=== PATIENT | male | born 1950 | race Caucasian/White ===

== ENCOUNTER 2017-04-20 12:54 | Inpatient (IN) | payer OTHER, MEDICARE ==
[~2017-04-20] VITALS: Ht 177.8 cm; Wt 115.2 kg
[~2017-04-20 12:54] MED LIST: AMLODIPINE BESYL5 M1 PO; BACITRACIN28.4 GM TOP; CELECOXIB200 M1 PO; CLEOCIN HCL300 M1 PO; FUROSEMIDE20 M1 PO; GABAPENTIN300 M2 PO; JARDIANCE10 M1 PO; KEFLEX500 M1 PO; KEFLEX750 M1 PO; LANTUS SOL100 UNIT/1 SC; LOSARTAN-HCTZ1 EACH PO; METFORMIN HCL1000 M1 PO; PERCOCET 325 MG1 TA2 PO; TRULICITY1.5 MG/0.5 SC
--- NOTE | 2017-04-20 13:28 | ED CARDIAC/CP/PALPITATIONS ---
History of Present Illness General Chief Complaint: Chest Pain Stated Complaint: "I THINK IM HAVING A HEART ATTACK" CP/L ARM PA Source: patient Exam Limitations: no limitations Vital Signs & Intake/Output Vital Signs & Intake/Output Vital Signs Date Time Temp Pulse Resp B/P B/P Pulse O2 O2 Flow FiO2 Mean Ox Delivery Rate 04/20 1836 104 24 140/63 92 Non 100% ReBreather 04/20 1804 92 Non 100% ReBreather 04/20 1747 98 24 123/59 92 Non ReBreather 04/20 1740 92 Non ReBreather 04/20 1520 97.7 96 24 114/55 93 Nasal 3.0L Cannula 04/20 1350 91 Nasal 2.0L Cannula 04/20 1334 91 Nasal 2.0L Cannula 04/20 1311 99.2 99 20 127/67 91 Room Air Allergies Coded Allergies: Penicillins (Severe, HIVES 09/15/16) latex (PEELS SKIN OFF PER PT 04/20/17) Reconcile Medications Amlodipine Besylate 10 MG TABLET 1 TAB PO DAILY BP (Reported) Aspirin (Ecotrin*) 81 MG TABLET.DR 1 TAB PO DAILY HEART/BLOOD (Reported) Celecoxib 200 MG CAPSULE 2 CAP PO QAM PAIN/INFLAMMATION (Reported) Cyanocobalamin (Vitamin B-12) (Vitamin B-12) 500 MCG TABLET 1 TAB PO DAILY SUPPLEMENT (Reported) Dulaglutide (Trulicity) (Unknown Strength) PEN.INJCTR (Unknown Dose) SC QMON DM (Reported) Empagliflozin (Jardiance) 10 MG TABLET 1 TAB PO DAILY DIABETES (Reported) Ezetimibe (Zetia) 10 MG TABLET 1 TAB PO DAILY CHOLESTEROL (Reported) Furosemide 20 MG TABLET 1 TAB PO DAILY WATER RETENTION (Reported) Gabapentin 300 MG CAPSULE 1 CAP PO TID PAIN (Reported) Hydrocortisone 2.5 % CREAM..G. 1 TASHA TOP PRN SKIN - NOSE (Reported) apply to affected area(s) Insulin Glargine,Hum.rec.anlog (Lantus Solostar) 100 UNIT/ML (3 ML) INSULN.PEN 40 UNIT SC QPM DIABETES (Reported) Ketoconazole (Nizoral) 2 % SHAMPOO 1 TASHA TOP ONCE A WEEK SCALP (Reported) Ketoconazole 2 % CREAM..G. 1 TASHA TOP PRN SKIN (Reported) apply to affected area(s) Levofloxacin 750 MG TABLET 1 TAB PO DAILY Pneumonia Losartan/Hydrochlorothiazide (Losartan-Hctz 100-12.5 MG Tab) 100 MG-12.5 MG TABLET 1 TAB PO DAILY HEART (Reported) Metformin HCl 1,000 MG TABLET 1 TAB PO BID DIABETES (Reported) [place]-3S/Dha/Epa/Fish Oil (Fish Oil 1,000 MG Softgel) 300 MG (250 MG-50 MG)-1, 000 MG CAPSULE 1 SGL PO BID SUPPLEMENT (Reported) Pyridoxine HCl (Vitamin B-6) 50 MG TABLET 1 TAB PO DAILY SUPPLEMENT (Reported ) Triage Note: C/O CP SINCE THIS MORNING THAT WENT INTO LEFT ARM. PT STATES LEFT HAND WAS NUMB. PT STATES +SOB. HX OF NEUROPATHY Triage Nurses Notes Reviewed? yes Onset: Gradual Duration: worse persistent since (2 DAYS) Timing: no prior history Quality/Severity: moderate Location: RIGHT SIDED Radiation: no radiation Activities at Onset: none HPI: Patient is a 66-year-old male with history of diabetes, hypertension, remote history of melanoma presenting to the emergency department complaint of congestion over the past one week presenting to the emergency department with chief complaint of right-sided chest pain, shortness of breath gets worse with exertion that started yesterday. denies palpitations. Positive tactile fevers and chills. Has not taken and revealed help with symptoms. Denies any changes in weight. Bleeding and drinking without difficulty. Denies any urinary frequency or urgency or dysuria. Denies hematuria. No abdominal pain. Denies daily drinking. Past History Travel History Traveled to [place] past 21 day No Medical History Any Pertinent Medical History? see below for history Neurological: NONE, peripheral neuropathy EENT: NONE Cardiovascular: hypertension, hyperlipidemia Respiratory: NONE Gastrointestinal: GERD Hepatic: NONE Renal: NONE Musculoskeletal: NONE Psychiatric: NONE Endocrine: diabetes Blood Disorders: NONE Cancer(s): melanoma PHLEBOTOMY SUPPORT TECH/Reproductive: NONE History of MRSA: No History of VRE: No History of CDIFF: No Surgical History Surgical History: MELANOMA REMOVED FROM BACK L HIP REPLACEMENT Psychosocial History Who do you live with Mother Services at Home None What is your primary language Cuban Tobacco Use: Quit >30 days ago ETOH Use: occasional use Illicit Drug Use: denies illicit drug use Family History Hx Contributory? No Review of Systems Review of Systems Constitutional: Reports: see HPI, chills, diaphoresis, fever. Comments Review of systems: See HPI, All other systems negative. Constitutional, no weight loss HEENT: No visual changes no sore throat Cardiovascular: No palpitation , orthopnea or ankle swelling Skin, no jaundice no rashes Respiratory: No hemoptysis GI: No nausea no vomiting : No dysuria No hematuria Muscle skeletal: no back pain, no neck pain, Neurologic: No numbness no confusion NO HEADACHES Psych: No stress anxiety or depression,. Heme/endocrine: No bruising no bleeding no polyuria or polydipsia Immunology: No splenectomy or history of AIDS Physical Exam Physical Exam General Appearance: alert, awake, mild distress, obese Cardiovascular: TACHY Comments: OBSES person in MID DISTRESS, appears mildly diaphoretic HEENT: Pupils equally round and reactive to light and accommodation. Nose is atraumatic. External auditory canal and Tympanic membranes clear. Pharynx normal. No swelling or edema. Slightly dry oral mucosa. Neck: Supple, no lymphadenopathy, normal range of motion without pain or tenderness Back: Nontender, no CVA tenderness. Full range of motion. Old surgical incision noted over the left upper back. No surrounding erythema or edema. Cardiovascular: Tachycardic rate and rhythms no murmurs rubs or gallops Respiratory: Chest nontender. MILD respiratory distress.scattered rhonchi to auscultation on the right upper and lower lobes, left lung is clear to auscultation. Abdomen: Soft, nontender diffusely distended, no appreciable organomegaly. Normal bowel sounds. Extremity: No edema, no calf tenderness to palpation, normal and equal pulses. Neuro: Alert oriented x3 Skin: No appreciable rash on exposed skin, skin is warm and dry. Psych: Mood and affect is normal, memory and judgment is normal. Core Measures ACS in differential dx? Yes CVA/TIA Diagnosis No Sepsis Present: Yes Sepsis Focused Exam Completed? Yes ED Sepsis Exam Date of Focused Sepsis Exam: 04/20/17 Time of Focused Sepsis Exam: 1410 Sepsis Cardiac Exam: Tachycardia Sepsis Resp Exam: Ronchi (RIGHT LOBE) Sepsis Cap Refill Exam: <2 Sec Sepsis Peripheral Pulse Exam: Normal Sepsis Peripheral Pulse Location: Radial Sepsis Skin Color Exam: Normal for Ethnicity Skin Temp/Moisture Exam: Warm/Dry Progress Differential Diagnosis: AMI, aortic dissection, cholecystitis, CHF/pulm edema, pneumonia, pneumothorax, pulmonary embolism, , POSTOBSTRUCTIVE PNEUMONIA, LUNG CA, Plan of Care: Orders Procedure Date/time Status AEROSOL CHG 04/23 UNK Complete OXYGEN 04/23 UNK Complete OXYGEN DAILY CHARGE 04/23 UNK Complete Diagnostic Imaging: Viewed by Me: Radiology Read. Discussed w/RAD: Radiology Read. Radiology Impression: PATIENT: CARLENE BEARD JR PRESENT AGE: 66 PATIENT ACCOUNT NO: [id number] : 50 LOCATION: [facility] ORDERING PHYSICIAN: Ivory VALDEZ SERVICE DATE: 04/20/17 EXAM TYPE: RAD - XRY-PORTABLE CHEST XRAY EXAMINATION: XR PORTABLE CHEST CLINICAL INFORMATION: Shortness of breath and chest pain. Rule out PE. COMPARISON: Chest CT 09/19/2016. TECHNIQUE: Portable frontal view of the chest was obtained. FINDINGS: Approximately 13 x 8 cm lesion is present in the right lateral chest which has the imaging appearance of a pleural based mass such as loculated pleural effusion. This finding will be further assessed on the already ordered chest CTA. The left lung is grossly clear. The cardiomediastinal silhouette appears normal. IMPRESSION: Large right-sided pleural-based mass measuring up to 13 x 8 cm concerning for a loculated pleural effusion. This finding will be more definitively characterized on the already ordered chest CTA. DICTATED BY: Candie Wagner MD DATE/TIME DICTATED:04/20/171419 MECHANICAL DRAWING TEACHER:MARIA ESTHER DATE/TIME TRANSCRIBED:04/20/171419 CONFIDENTIAL, DO NOT COPY WITHOUT APPROPRIATE AUTHORIZATION. <Electronically signed in Other Vendor System> SIGNED BY: Candie Wagner MD 04/20/171428 Initial ED EKG: SINUS TACHY Departure Departure Time of Disposition: 1911 Disposition: STILL A PATIENT Condition: Stable Clinical Impression Primary Impression: Pneumonia Qualifiers: Pneumonia type: due to unspecified organism Laterality: right Lung location: upper lobe of lung Qualified Code: J18.1 - Lobar pneumonia, unspecified organism Secondary Impressions: Hypoxia Referrals: Keya JUSTIN,Naeem Becerra (PCP/Family) Departure Forms: Customer Survey General Discharge Information Prescriptions: Current Visit Scripts Levofloxacin 1 TAB PO DAILY #7 TAB Admission Note Spoke With: Nickie Edwards MD Documentation of Exam: Documentation of any treatments & extenuating circumstances including Concerns Regarding Discharge (functional status, medication knowledge or non-compliance, living conditions, etc.) that warrant an admission rather than observation: Patient requiring IV antibiotics for likely large pneumonia, pulmonology consultation, continued oxygen for hypoxia, continuous pulse ox monitoring, blood cultures to return, discharge at the sense that. Serial ABGs. Critical Care Note Critical Care Note Critical Care Time: 75-104 min 83.7, MCH 28.4, MCHC 34.0, RDW 15.0 H, MPV 9.4, Gran % 93.4 H, Lymphocytes % 2.2 L, Monocytes % 4.4, Eosinophils % 0, Basophils % 0, Absolute Granulocytes 19.6 H, Segmented Neutrophils 70, Band Neutrophils 19 H, Absolute Lymphocytes 0.5 L, Lymphocytes 1 L, Monocytes 10 H, Absolute Monocytes 0.9 H, Absolute Eosinophils 0, Absolute Basophils 0, Polychromasia 1+, Anisocytosis 1+ Microbiology 04/20 1558 BLOOD: Blood Culture - RECD 04/20 1450 BLOOD: Blood Culture - RECD 04/20 1415 NASOPHARYN: Influenza Virus A & B Rapid Smear - COMP Diagnostic Imaging: Viewed by Me: Radiology Read. Discussed w/RAD: Radiology Read. Radiology Impression: PATIENT: CARLENE BEARD JR PRESENT AGE: 66 PATIENT ACCOUNT NO: [id number] : 50 LOCATION: [facility] ORDERING PHYSICIAN: Ivory VALDEZ SERVICE DATE: 04/20/17 EXAM TYPE: RAD - XRY-PORTABLE CHEST XRAY EXAMINATION: XR PORTABLE CHEST CLINICAL INFORMATION: Shortness of breath and chest pain. Rule out PE. COMPARISON: Chest CT 09/19/2016. TECHNIQUE: Portable frontal view of the chest was obtained. FINDINGS: Approximately 13 x 8 cm lesion is present in the right lateral chest which has the imaging appearance of a pleural based mass such as loculated pleural effusion. This finding will be further assessed on the already ordered chest CTA. The left lung is grossly clear. The cardiomediastinal silhouette appears normal. IMPRESSION: Large right-sided pleural-based mass measuring up to 13 x 8 cm concerning for a loculated pleural effusion. This finding will be more definitively characterized on the already ordered chest CTA. DICTATED BY: Candie Wagner MD DATE/TIME DICTATED:04/20/171419 MECHANICAL DRAWING TEACHER:MARIA ESTHER DATE/TIME TRANSCRIBED:04/20/171419 CONFIDENTIAL, DO NOT COPY WITHOUT APPROPRIATE AUTHORIZATION. <Electronically signed in Other Vendor System> SIGNED BY: Candie Wagner MD 04/20/17 1429 Initial ED EKG: SINUS TACHY Departure Departure Time of Disposition: 1911 Disposition: STILL A PATIENT Condition: Stable Clinical Impression Primary Impression: Pneumonia Qualifiers: Pneumonia type: due to unspecified organism Laterality: right Lung location: upper lobe of lung Qualified Code: J18.1 - Lobar pneumonia, unspecified organism Secondary Impressions: Hypoxia Referrals: Naeem Laura MD (PCP/Family) Departure Forms: Customer Survey General Discharge Information Admission Note Spoke With: Nickie Edwards MD Documentation of Exam: Documentation of any treatments & extenuating circumstances including Concerns Regarding Discharge (functional status, medication knowledge or non-compliance, living conditions, etc.) that warrant an admission rather than observation: Patient requiring IV antibiotics for likely large pneumonia, pulmonology consultation, continued oxygen for hypoxia, continuous pulse ox monitoring, blood cultures to return, discharge at the sense that. Serial ABGs. Critical Care Note Critical Care Note Critical Care Time: 75-104 min
[2017-04-20 13:38] LABS: ABSOLUTE BASOPHIL COUNT 0 /CUMM (0.0-0.2); ABSOLUTE EOSINOPHIL COUNT 0 /CUMM (0.0-0.7); ABSOLUTE GRANULOCYTE CT 19.6 /CUMM (1.4-6.5); ABSOLUTE LYMPH COUNT 0.5 /CUMM (1.2-3.4); ABSOLUTE MONOCYTE COUNT 0.9 /CUMM (0.10-0.60); BASOPHIL % 0 % (0.0-2.0); EOSINOPHIL % 0 % (0-5); GRANULOCYTE % 93.4 % (42.2-75.2); HEMATOCRIT 40.9 % (42-52); MEAN CORPUSCULAR HGB 28.4 PG (27.0-31.0); MEAN CORPUSCULAR VOLUME 83.7 FL (80.0-94.0); MEAN PLATELET VOLUME 9.4 FL (7.4-10.4); PLATELET COUNT 209 /CUMM (130-400); RED BLOOD CELL CT 4.88 /CUMM (4.70-6.10)
--- NOTE | 2017-04-20 14:29 | RADIOLOGY REPORT ---
EXAMINATION: XR PORTABLE CHEST CLINICAL INFORMATION: Shortness of breath and chest pain. Rule out PE. COMPARISON: Chest CT 09/19/2016. TECHNIQUE: Portable frontal view of the chest was obtained. FINDINGS: Approximately 13 x 8 cm lesion is present in the right lateral chest which has the imaging appearance of a pleural based mass such as loculated pleural effusion. This finding will be further assessed on the already ordered chest CTA. The left lung is grossly clear. The cardiomediastinal silhouette appears normal. IMPRESSION: Large right-sided pleural-based mass measuring up to 13 x 8 cm concerning for a loculated pleural effusion. This finding will be more definitively characterized on the already ordered chest CTA.
[2017-04-20 16:56] LABS: PT 15.6 SEC (9.4-12.5); PTT 33 SEC (25-37)
--- NOTE | 2017-04-20 19:07 | CT SCAN REPORT ---
EXAMINATION: CT ANGIOGRAM OF THE CHEST WITH AND WITHOUT CONTRAST (CT PULMONARY ANGIOGRAM FOR PE) CLINICAL INFORMATION: CP, SOB COMPARISON: CT chest 09/19/2016. PET/CT 10/31/2016. Portable chest x-ray 04/20/2017 TECHNIQUE: Prior to contrast administration, noncontrast localization images were obtained. Subsequently, multidetector volumetric imaging was performed from the thoracic inlet to below the diaphragms following the administration of 77 mL Optiray 350 intravenous contrast. No contrast reaction reported. Sagittal, coronal, and MIP oblique sagittal reformatted images were obtained on the CT workstation, uploaded to PACS, and reviewed. Total exam dose-length product 554.31 mGy-cm. FINDINGS: QUALITY OF STUDY/CONTRAST BOLUS: Satisfactory PULMONARY ARTERIES: No central or segmental pulmonary emboli. THORACIC AORTA: No aneurysm or dissection. There is atherosclerotic vascular wall calcifications of the aorta. LUNG: There is a large area of lobar dense consolidation with air bronchograms of the right upper lobe. This primarily affects the posterior and peripheral mid right upper lobe. There is linear opacities of dependent atelectasis at the left lung base. There are also scattered subtle small groundglass alveolar opacities in the left upper lobe and lingula. This primarily affects the central left lung. There is a subpleural nodule left lower lobe posterior medially. This measures 1.6 cm. This nodule measured 0.8 cm on the PET/CT exam of 10/31/2016. The central bronchial airways are open. PLEURA: No pleural effusion or pneumothorax. MEDIASTINUM: There is no mediastinal mass or significant lymphadenopathy. There are small shotty subcentimeter lymph nodes in the mediastinum unchanged since prior exam. There is no pericardial effusion. CHEST WALL/AXILLA: No axillary or internal mammary lymphadenopathy. OSSEOUS STRUCTURES: Degenerative spondylosis spine with multilevel endplate spurring of the vertebrae. UPPER ABDOMEN: Unremarkable. No reflux of contrast into the hepatic veins to suggest elevated right heart pressures. IMPRESSION: 1. Large area of dense consolidation with air bronchograms of the right upper lobe. The central bronchial airways are open. No significant mediastinal lymphadenopathy or mass. 2. Increasing size of left lower lobe pulmonary mass now measuring 1.6 cm. 3. Scattered subtle groundglass opacities in the left upper lobe and lingula. VTE: negative
[2017-04-20] MEDS ORDERED: ASPIRIN EC81 M1 PO (19:45)
[2017-04-20] MEDS ORDERED: AMLODIPINE BESY10 M1 PO (19:47)
[2017-04-20] MEDS ORDERED: ZETIA10 M1 PO (19:47)
[2017-04-20] MEDS ORDERED: NIZORAL120 ML TOP (19:48)
[2017-04-20] MEDS ORDERED: KETOCONAZOLE15 GM TOP (19:48)
[2017-04-20] MEDS ORDERED: HYDROCORTISO453.6 G2 TOP (19:49)
[2017-04-20] MEDS ORDERED: VITAMIN B-12500 MC2 PO (19:50)
[2017-04-20] MEDS ORDERED: VITAMIN B-650 M2 PO (19:50)
[2017-04-20] MEDS ORDERED: FISH OIL 1,0001 EAC5 PO (19:50)
--- NOTE | 2017-04-20 22:15 | History & Physical ---
Todd Xiong 04/20/17 2215: General Information and HPI MD Statement: I have seen and personally examined CARLENE BEARD JR and documented this H&P. Source of Information: patient Exam Limitations: no limitations History of Present Illness: This is a 66-year-old gentleman with past medical history significant for hypertension, diabetes, melanoma, lung mass who presents to the hospital with congestion, right-sided chest pain and shortness of breath. According to the patient, he started experiencing nasal congestion with cough/ clear sputum, shortness of breath and right-sided deep chest pain after each episode of cough. His symptoms started worsening and he decided to present to the hospital. He reports having some chills as well however denies having any subjective fever. The patient denies having any sick contacts. At the time of our interview, the patient denies any headache, dizziness, lightheadedness, nausea, vomiting, abdominal pain, urinary symptoms. His shortness of breath has much improved since his presentation to the ED; he is on high flow oxygen. He also reports having right sided non radinating 3/10 chest pain. Allergies/Medications Allergies: Coded Allergies: Penicillins (Severe, HIVES 09/15/16) latex (PEELS SKIN OFF PER PT 04/20/17) Home Med list Amlodipine Besylate 10 MG TABLET 1 TAB PO DAILY BP (Reported) Aspirin (Ecotrin*) 81 MG TABLET.DR 1 TAB PO DAILY HEART/BLOOD (Reported) Celecoxib 200 MG CAPSULE 2 CAP PO QAM PAIN/INFLAMMATION (Reported) Cyanocobalamin (Vitamin B-12) (Vitamin B-12) 500 MCG TABLET 1 TAB PO DAILY SUPPLEMENT (Reported) Dulaglutide (Trulicity) (Unknown Strength) PEN.INJCTR (Unknown Dose) SC QMON DM (Reported) Empagliflozin (Jardiance) 10 MG TABLET 1 TAB PO DAILY DIABETES (Reported) Ezetimibe (Zetia) 10 MG TABLET 1 TAB PO DAILY CHOLESTEROL (Reported) Furosemide 20 MG TABLET 1 TAB PO DAILY WATER RETENTION (Reported) Gabapentin 300 MG CAPSULE 1 CAP PO TID PAIN (Reported) Hydrocortisone 2.5 % CREAM..G. 1 TASHA TOP PRN SKIN - NOSE (Reported) apply to affected area(s) Insulin Glargine,Hum.rec.anlog (Lantus Solostar) 100 UNIT/ML (3 ML) INSULN.PEN 40 UNIT SC QPM DIABETES (Reported) Ketoconazole (Nizoral) 2 % SHAMPOO 1 TASHA TOP ONCE A WEEK SCALP (Reported) Ketoconazole 2 % CREAM..G. 1 TASHA TOP PRN SKIN (Reported) apply to affected area(s) Losartan/Hydrochlorothiazide (Losartan-Hctz 100-12.5 MG Tab) 100 MG-12.5 MG TABLET 1 TAB PO DAILY HEART (Reported) Metformin HCl 1,000 MG TABLET 1 TAB PO BID DIABETES (Reported) [place]-3S/Dha/Epa/Fish Oil (Fish Oil 1,000 MG Softgel) 300 MG (250 MG-50 MG)-1, 000 MG CAPSULE 1 SGL PO BID SUPPLEMENT (Reported) Pyridoxine HCl (Vitamin B-6) 50 MG TABLET 1 TAB PO DAILY SUPPLEMENT (Reported ) Past History Travel History Traveled to [place] past 21 day No Medical History Neurological: NONE, peripheral neuropathy EENT: NONE Cardiovascular: hypertension, hyperlipidemia Respiratory: NONE Gastrointestinal: GERD Hepatic: NONE Renal: NONE Musculoskeletal: NONE Psychiatric: NONE Endocrine: diabetes Blood Disorders: NONE Cancer(s): melanoma TIRE SPOTTER/Reproductive: NONE History of MRSA: No History of VRE: No History of CDIFF: No Surgical History Surgical History: MELANOMA REMOVED FROM BACK L HIP REPLACEMENT Past Family/Social History Psychosocial History Services at Home: None ETOH Use: occasional use Illicit Drug Use: denies illicit drug use Functional Ability ADLs Independent: dressing, eating, toileting, bathing. Ambulation: independent IADLs Independent: shopping, housework, finances, food prep, telephone, transportation , medication admin. Review of Systems Review of Systems Constitutional: Reports: chills. Denies: diaphoresis, fever, malaise, weakness, unexplained weight loss. EENTM: Reports: no symptoms. Cardiovascular: Denies: chest pain, edema, orthopena, palpitations, peripheral edema, syncope. Respiratory: Reports: see HPI, cough, short of breath, sputum production. Denies: hemoptysis , orthopnea, stridor, wheezing. GI: Reports: no symptoms. Genitourinary: Reports: no symptoms. Musculoskeletal: Reports: no symptoms. Skin: Reports: no symptoms. Neurological/Psychological: Reports: no symptoms. Hematologic/Endocrine: Reports: no symptoms. Immunologic/Allergic: Reports: no symptoms. All Other Systems: Reviewed and Negative Exam & Diagnostic Data Last 24 Hrs of Vital Signs/I&O Vital Signs Date Time Temp Pulse Resp B/P B/P Pulse O2 O2 Flow FiO2 Mean Ox Delivery Rate 04/20 2357 95 Nasal 90% Cannula 04/20 2306 98.8 94 22 122/56 96 Nasal 90% Cannula 04/20 2141 98.6 97 22 137/63 98 Nasal 90% Cannula 04/20 2050 98.4 99 22 133/62 97 Nasal 95% Cannula 04/20 1836 104 24 140/63 92 Non 100% ReBreather 04/20 1804 92 Non 100% ReBreather 04/20 1747 98 24 123/59 92 Non ReBreather 04/20 1740 92 Non ReBreather 04/20 1520 97.7 96 24 114/55 93 Nasal 3.0L Cannula 04/20 1350 91 Nasal 2.0L Cannula 04/20 1334 91 Nasal 2.0L Cannula 04/20 1311 99.2 99 20 127/67 91 Room Air Intake & Output 04/21 0800 04/21 0000 04/20 1600 Intake Total Output Total Balance Patient 245 lb Weight Weight Reported by Patient Measurement Method Physical Exam General Appearance Alert, Oriented X3, Cooperative, No Acute Distress Skin No Rashes, No Breakdown, No Significant Lesion Skin Temp/Moisture Exam: Warm/Dry Sepsis Skin Exam (color): Normal for Ethnicity HEENT Atraumatic, PERRLA, EOMI, Mucous Membr. moist/pink Neck Supple, No JVD, No thryomegaly, +2 Carotid Pulse wo Bruit, No LAD Lymphatic Cervical nl Cardiovascular Regular Rate, Normal S1, Normal S2, No Murmurs, Gallops, Rubs Lungs scattered rhonchi Abdomen Normal Bowel Sounds, Soft, No Tenderness, No Hepatospenomegaly, No Masses Neurological Normal Speech, Strength at 5/5 X4 Ext, Normal Tone, Sensation Intact, Cranial Nerves 3-12 NL, Reflexes 2+ Extremities No Clubbing, No Cyanosis, Normal Pulses, No Tenderness/Swelling, b/l pedal edema; per patient his baseline Vascular Normal Pulses, Pulses Symmetrical Last 24 Hrs of Labs/Chris: Laboratory Tests 04/20/176: Lactic Acid 1.9 04/20/175: pH 7.34 L, pCO2 41, pO2 64 L, HCO3 22, ABG O2 Sat (Measured) 92.0 L, P-50 ( Temp Corrected) Y, Carboxyhemoglobin 0.6 L, O2 Concentration % 100%, Temperature 97.7, O2 Delivery Method NRB, Phlebotomy Draw Site RIGHT RADIAL 04/20/17 1700: Estimated GFR 43 L, BUN/Creatinine Ratio 30.6 H 04/20/17 1558: Lactic Acid 3.6 H 04/20/17 1355: Lactic Acid 5.0 H 04/20/17 1328: Anion Gap 13, Estimated GFR 41 L, BUN/Creatinine Ratio 29.4 H, Glucose 288 H, Calcium 8.3 L, Total Bilirubin 0.6, AST 34, ALT 41, Alkaline Phosphatase 61, Troponin I < 0.01, Mmd-U-Envgqeepugu Pept 1500 H, Total Protein 5.4 L, Albumin 2.9 L, Globulin 2.5, Albumin/Globulin Ratio 1.2, PT 15.6 H, INR 1.43 H, APTT 33, D-Dimer High Sensitivty 450 H, CBC w Diff MAN DIFF ORDERED, RBC 4.88, MCV 83.7, MCH 28.4, MCHC 34.0, RDW 15.0 H, MPV 9.4, Gran % 93.4 H, Lymphocytes % 2.2 L, Monocytes % 4.4, Eosinophils % 0, Basophils % 0, Absolute Granulocytes 19.6 H, Segmented Neutrophils 70, Band Neutrophils 19 H, Absolute Lymphocytes 0.5 L, Lymphocytes 1 L, Monocytes 10 H, Absolute Monocytes 0.9 H, Absolute Eosinophils 0, Absolute Basophils 0, Polychromasia 1+, Anisocytosis 1+ Microbiology 04/21 2343 URINE ROUT: Legionella Antigen - COLB 04/21 2343 URINE ROUT: Streptococcus pneumoniae Antigen (M - COLB 04/20 2342 UPPER RESP: Surveillance Culture - COLB 04/20 2342 GI: Surveillance Culture - COLB 04/20 1558 BLOOD: Blood Culture - RECD 04/20 1450 BLOOD: Blood Culture - RECD 04/20 1415 NASOPHARYN: Influenza Virus A & B Rapid Smear - COMP Diagnostic Data EKG Results S. tachy, rate 102, low voltage in frontal leads CXR Results Large right-sided pleural-based mass measuring up to 13 x 8 cm concerning for a loculated pleural effusion. This finding will be more definitively characterized on the already ordered chest CTA. Other Results CTA: 1. Large area of dense consolidation with air bronchograms of the right upper lobe. The central bronchial airways are open. No significant mediastinal lymphadenopathy or mass. 2. Increasing size of left lower lobe pulmonary mass now measuring 1.6 cm. 3. Scattered subtle groundglass opacities in the left upper lobe and lingula. VTE: negative Assessment/Plan Assessment: This is a 66-year-old gentleman with past medical history significant for hypertension, diabetes, melanoma, lung mass who presents to the hospital with congestion, right-sided chest pain and shortness of breath. In the ED was found to be in respiratory failure, pH 7.34, PCO2 41, PO2 64, HCO3 22, was started on nonrebreather O2. Labs revealed leukocytosis with granulocytosis. Also elevated lactic acid which is now normalized. He received IV vancomycin, IV ceftriaxone and IV azithromycin in the ED. Problem list #Acute hypoxic respiratory failure #Community-acquired pneumonia #Sepsis #AK I #Diabetes, hypertension, hyperlipidemia Plan ceftriaxone for follow As Ranked By This Provider Problem List: 1. Pneumonia Qualifiers Pneumonia type: due to unspecified organism Laterality: right Lung location: upper lobe of lung Qualified Code: J18.1 - Lobar pneumonia, unspecified organism 2. Hypoxia Core Measures/Misc (10/29) Acute Coronary Syndrome ACS Diagnosis: No Congestive Heart Failure Congestive Heart Failure Diagnosis No Cerebrovascular Accident CVA/TIA Diagnosis: No VTE (View Protocol) VTE Risk Factors Age>40 No Mechanical VTE Prophylaxis d/t N/A MechProphylax Ordered No VTE Pharm Prophylaxis d/t NA PharmProphylax ordered Sepsis (View protocol) Sepsis Present: Yes Nickie Edwards 04/21/17 0046: Attending MD Review Statement Attending Statement Attending MD Statement: examined this patient, discuss w/resident/PA/MASTERCAM PROGRAMMER, agreed w/resident/PA/MASTERCAM PROGRAMMER, reviewed EMR data (avail), reviewed images, amended to note Attending Assessment/Plan: CC: Shortness of breath PMH: DM, HTN, neuropathy, history of melanoma on back S/P resection Patient came to ER for 1 day history of severe shortness of breath, right-sided chest pain. Patient was not feeling well 2 days back, was feeling fatigue mild dizziness. Yesterday he noticed worsening breathing, at rest and exertion, no wheezing. He also noticed right-sided chest pain, more with deep breathing, nonradiating, present at rest, improved after coming to ER. He tried inhalers at home without much relief. He had chills but no fever, denies choking, uses denture no recent dentition problem, no vomiting, no recent hospitalization, no sick contacts, no recent antibiotic use. He received influenza vaccine but did not receive pneumonia vaccine. Patient is coughing while interview but denied any cough, stated that it started after coming here. For nodule on his lung, which was diagnosed in his previous hospitalization he underwent PET scan which is documented here, had repeat PET scan at [facility] and have been following up there, last visit one month back. He Did not undergo biopsy. He sees Dr. Roper for pulmonology, last visit 3 months back. He is supposed to be on some inhalation but does not use it at home. [id number] history of smoking, quit 10 years back. He denied excessive alcohol use, drinks occasionally, denied any other drug use, allergic to penicillin. Vitals: Tmax 99.2, pulse 99, RR 20 -24, blood pressure 127/67, saturating 91% on nonrebreather. On exam: A O 3, cooperative, moderate respiratory distress, accessory muscles in use, no JVD, neck supple, no lymphadenopathy, mucosa dry, no focal neurological deficit, +1 leg chronic edema, no obvious skin rashes or inflammation, scar on for his melanoma surgery. CVS: S1-S2, RRR. RS: Rhonchi and crackles on right mid zone. Abdomen: Soft, NT, ND, bowel sounds present. CXR: Large right-sided pleural-based mass measuring up to 13 x 8 cm concerning for a loculated pleural effusion. This finding will be more definitively characterized on the already ordered chest CTA. CTA chest: 1. Large area of dense consolidation with air bronchograms of the right upper lobe. The central bronchial airways are open. No significant mediastinal lymphadenopathy or mass. 2. Increasing size of left lower lobe pulmonary mass now measuring 1.6 cm. 3. Scattered subtle groundglass opacities in the left upper lobe and lingual. ABG: PH 7.34, PCO2 41, PO2 of 64, HCO3 22 on 100% nonrebreather Assessment and plan 66-year-old male with past medical history significant for DM, HTN, neuropathy presented in ER for 1 day history of severe shortness of breath, right-sided pleuritic chest pain, cough started after coming to ER. He does not have any URI symptoms at the beginning, no choking or vomiting, no recent antibiotic use, and recent hospitalization. He received influenza vaccine and did not received pneumonia vaccine. He has significant work of breathing with accessory muscles in use, right mid and upper some crackles and rhonchi. Patient was desaturating on nasal cannula oxygen, was started on nonrebreather which was uncomfortable for him but ABG done half an hour after nonrebreather was started showed significant hypoxia, nonrebreather was changed to high flow nasal cannula for comfort, oxygenation improved to 92-93% to up to 95%. He had significant leukocytosis with left shift and 19 bands, acute kidney injury previous creatinine being 0.8 and previous hospitalization now increased to 1.7, lactic acid of 5.0, proBNP of 1500. Chest x-ray was obtained which showed ambiguous findings, so CTA chest was obtained which showed large consolidation, which explains his degree of hypoxia. No pulmonary embolism was identified. Patient currently hemodynamically stable, no significant fever spike but for his degree of hypoxia and consolidation he would benefit from ICU admission. CTA also mentions about increasing size of pulmonary nodule on left lower lobe, compared to previous CT and PET scan. According to patient he followed up at [facility] approximately 1 month back, the nodule size was stable and no biopsy was suggested at that time. Even his extensive smoking history, this needs further follow-up + Community-acquired pneumonia + Acute hypoxic respiratory failure + History of DM, HTN, neuropathy, possible history of COPD - Admit to ICU - Every hourly vitals - Continue pulse ox - Continue telemetry monitoring - Continue high flow nasal cannula - Repeat ABG in a.m. - [facility] nebs - Mucinex 600 twice a day - Ceftriaxone 2 g IV daily, azithromycin 500 mg IV daily - Patient received a dose of vancomycin in ER - 1 more set of troponin and EKG - Strept and Legionella antigen - Continue normal saline at 150 mL per hour maintenance - Trend lactate - Repeat labs in a.m. - Continue sliding scale insulin - Schedule all his antihypertensives from tomorrow if blood pressure stable overnight - Critical care consult - DVT prophylaxis
[2017-04-21] VITALS: BP 120/70
--- NOTE | 2017-04-21 00:48 | Admission Certification ---
Admission Certification Certification Statement - As attending physician, I certify that at the time of - admission, based on clinical presentation, severity of - symptoms, need for further diagnostic testing and - therapeutic interventions, and risk of adverse outcomes - without in-hospital treatment, in my clinical assessment, - this patient requires an acute hospital stay for a minimum - of two nights or longer. I have also considered psychsocial - factors such as support system, advanced age, financial - issues, cognitive issues, and failed out-patient treatments, - past re-admission history, safety of patient, and lack of - compliance as applicable. Specific rationale supporting this admission is: Pneumonia, acute hypoxic respiratory failure
--- NOTE | 2017-04-21 05:45 | Event Note ---
Event Note Event Note: I was informed by the nurse that the patient is growing gram-positive cocci in 1 out of 2 blood culture. Patient received 1 dose of vancomycin in the ER. We will follow up with blood culture and change antibiotics accordingly.
[2017-04-21 08:00] VITALS: BP 120/62
--- NOTE | 2017-04-21 08:23 | Cons- CRCU ---
Flory Kelley 04/21/17 0823: General Information and HPI Consulting Request Date of Consult: 04/21/17 Requested By: Dr. Edwards Source of Information: patient, old records Exam Limitations: no limitations History of Present Illness: 66-year-old gentleman former smoker with past medical history significant for hypertension, type 2 diabetes, melanoma diagnosed three years ago and followed up [facility], known lung nodule admitted for shortness of breath, right-sided pleuritic chest pain, cough. Found to in acute hypoxic respiratory distress required nonrebreather and high flow oxygen. On interview patient stated that his breathing has improved and does not have chest pain. Denied fevers, nausea /vomiting or abdominal pain. Received influenza vaccine and did not received pneumonia vaccine. Patient is followed up by Dr. Roper as outpatient and last saw him about 4 months ago. Per EMR record patient does have a tendency to desaturate overnight and is noncompliant with oxygen. Allergies/Medications Allergies: Coded Allergies: Penicillins (Severe, HIVES 09/15/16) latex (PEELS SKIN OFF PER PT 04/20/17) Home Med List: Amlodipine Besylate 10 MG TABLET 1 TAB PO DAILY BP (Reported) Aspirin (Ecotrin*) 81 MG TABLET.DR 1 TAB PO DAILY HEART/BLOOD (Reported) Celecoxib 200 MG CAPSULE 2 CAP PO QAM PAIN/INFLAMMATION (Reported) Cyanocobalamin (Vitamin B-12) (Vitamin B-12) 500 MCG TABLET 1 TAB PO DAILY SUPPLEMENT (Reported) Dulaglutide (Trulicity) (Unknown Strength) PEN.INJCTR (Unknown Dose) SC QMON DM (Reported) Empagliflozin (Jardiance) 10 MG TABLET 1 TAB PO DAILY DIABETES (Reported) Ezetimibe (Zetia) 10 MG TABLET 1 TAB PO DAILY CHOLESTEROL (Reported) Furosemide 20 MG TABLET 1 TAB PO DAILY WATER RETENTION (Reported) Gabapentin 300 MG CAPSULE 1 CAP PO TID PAIN (Reported) Hydrocortisone 2.5 % CREAM..G. 1 TASHA TOP PRN SKIN - NOSE (Reported) apply to affected area(s) Insulin Glargine,Hum.rec.anlog (Lantus Solostar) 100 UNIT/ML (3 ML) INSULN.PEN 40 UNIT SC QPM DIABETES (Reported) Ketoconazole (Nizoral) 2 % SHAMPOO 1 TASHA TOP ONCE A WEEK SCALP (Reported) Ketoconazole 2 % CREAM..G. 1 TASHA TOP PRN SKIN (Reported) apply to affected area(s) Losartan/Hydrochlorothiazide (Losartan-Hctz 100-12.5 MG Tab) 100 MG-12.5 MG TABLET 1 TAB PO DAILY HEART (Reported) Metformin HCl 1,000 MG TABLET 1 TAB PO BID DIABETES (Reported) [place]-3S/Dha/Epa/Fish Oil (Fish Oil 1,000 MG Softgel) 300 MG (250 MG-50 MG)-1, 000 MG CAPSULE 1 SGL PO BID SUPPLEMENT (Reported) Pyridoxine HCl (Vitamin B-6) 50 MG TABLET 1 TAB PO DAILY SUPPLEMENT (Reported ) Current Medications: Current Medications Sig/Mirna Start time Last Medication Dose Route Stop Time Status Admin Albuterol Sulfate 3 ML BID 04/21 1000 AC 04/21 INH 0856 Albuterol Sulfate 3 ML ONCE ONE 04/20 1745 DC 04/20 INH 04/20 1746 1753 Albuterol Sulfate 3 ML ONCE ONE 04/20 1330 DC 04/20 INH 04/20 1331 1349 Amlodipine Besylate 10 MG DAILY 04/21 1000 AC PO Aspirin Buffered 81 MG DAILY 04/21 1000 AC PO Azithromycin 500 MG DAILY 04/21 1000 AC Dextrose/Water 250 ML IV Azithromycin 500 MG ONCE ONE 04/20 1430 DC 04/20 Dextrose/Water 250 ML IV 04/20 1529 1455 Ceftriaxone Sodium 2,000 MG DAILY 04/21 1000 AC IV Ceftriaxone Sodium 0 .STK-MED ONE 04/20 1454 DC .ROUTE Ceftriaxone Sodium 1,000 MG ONCE ONE 04/20 1430 DC 04/20 IV 04/20 1431 1455 Ezetimibe 10 MG DAILY 04/21 1000 AC PO Gabapentin 300 MG TID 04/21 0052 AC 04/21 PO 0146 Heparin Sodium 5,000 UNIT Q8 04/21 0059 AC 04/21 (Porcine) SC 0119 Insulin Aspart 0 TIDAC 04/21 0800 AC SC Insulin Detemir 20 UNITS QPM 04/21 2200 AC SC Insulin Detemir 20 UNITS ONCE ONE 04/21 0115 DC 04/21 SC 04/21 0116 0117 Insulin Detemir 40 UNITS QPM 04/21 0030 DC SC Ipratropium Shiro 2.5 ML ONCE ONE 04/20 1330 DC 04/20 INH 04/20 1331 1349 Sodium Chloride 1,000 ML Q10H 04/20 2345 DC 04/21 IV 0134 Sodium Chloride 1,000 ML BOLUS ONE 04/20 1800 DC IV 04/20 1959 Sodium Chloride 1,000 ML BOLUS ONE 04/20 1430 DC 04/20 IV 04/20 1629 1435 Sodium Chloride 1,000 ML BOLUS ONE 04/20 1430 DC IV 04/20 1629 Sodium Chloride 1,000 ML BOLUS ONE 04/20 1430 DC 04/20 IV 04/20 1629 1725 Sodium Chloride 500 ML BOLUS ONE 04/20 1430 DC IV 04/20 1529 Vancomycin HCl 0 .STK-MED ONE 04/20 191 DC .ROUTE Vancomycin HCl 1,000 MG ONCE ONE 04/20 1845 DC 04/20 Dextrose/Water 250 ML IV 04/20 Review of Systems Review of Systems Constitutional: Denies: chills, diaphoresis, fever, malaise, weakness, unexplained weight loss. Cardiovascular: Denies: chest pain, edema, orthopena, palpitations, peripheral edema, syncope. Respiratory: Reports: cough. Denies: hemoptysis, orthopnea, short of breath, sputum production, stridor, wheezing. GI: Denies: abdominal pain, bloating, constipation, diarrhea, distention, bowel incontinence, melena, nausea, bloody stool, changes in stool, vomiting, steatorrhea. Genitourinary: Denies: discharge, dysuria, frequency, hematuria, hesitation, nocturia, pain, urgency. 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 Home Services at Home: None Smoking Status: Unknown If Ever Smoked ETOH Use: occasional use Illicit Drug Use: denies illicit drug use Functional Ability ADLs Independent: dressing, eating, toileting, bathing. Ambulation: independent IADLs Independent: shopping, housework, finances, food prep, telephone, transportation , medication admin. Exam & Diagnostic Data Last 24 Hrs of Vital Signs/I&O Vital Signs Date Time Temp Pulse Resp B/P B/P Pulse O2 O2 Flow FiO2 Mean Ox Delivery Rate 04/21 0922 Nasal 9L Cannula 04/21 0855 93 Nasal 9L Cannula 04/21 0400 93 Nasal 9L Cannula 04/21 0308 91 Nasal 9L Cannula 04/21 0000 97.4 95 22 120/70 95 Nasal 90% Cannula 04/21 0000 95 Nasal 90% Cannula 04/20 2357 95 Nasal 90% Cannula 04/20 2306 98.8 94 22 122/56 96 Nasal 90% Cannula 04/20 2141 98.6 97 22 137/63 98 Nasal 90% Cannula 04/20 2050 98.4 99 22 133/62 97 Nasal 95% Cannula 04/20 1836 104 24 140/63 92 Non 100% ReBreather 04/20 1804 92 Non 100% ReBreather 04/20 1747 98 24 123/59 92 Non ReBreather 04/20 1740 92 Non ReBreather 04/20 1520 97.7 96 24 114/55 93 Nasal 3.0L Cannula 04/20 1350 91 Nasal 2.0L Cannula 04/20 1334 91 Nasal 2.0L Cannula 04/20 1311 99.2 99 20 127/67 91 Room Air Intake & Output 04/21 1600 04/21 0800 04/21 0000 Intake Total 950 Output Total 700 Balance 250 Intake, IV 350 Intake, Oral 600 Output, Urine 700 Patient 254 lb Weight Weight Bed scale Measurement Method Physical Exam General Appearance: no apparent distress, alert, awake, comfortable Respiratory: normal breath sounds Cardiovascular: regular rate/rhythm Extremities: no edema Last 48 Hrs of Labs/Chris: Laboratory Tests 04/21/17 0935: WBC Pending, RBC Pending, Hgb Pending, Hct Pending, MCV Pending, MCH Pending, MCHC Pending, RDW Pending, Plt Count Pending, MPV Pending 04/21/17 0648: Anion Gap 9, Estimated GFR 55 L, Glucose 112 H, Calcium 7.6 L, Phosphorus 3.7 , Magnesium 2.1, Total Bilirubin 0.4, AST 33, ALT 40, Albumin 2.7 L 04/21/17 0430: pH 7.37, pCO2 41, pO2 59 L, HCO3 23, ABG O2 Sat (Measured) 91.0 L, P-50 (Temp Corrected) Y, Carboxyhemoglobin 0.3 L, O2 Concentration % 9 LPM, Temperature 97.2, O2 Delivery Method N/C, Phlebotomy Draw Site LEFT RADIAL 04/21/17 0030: Troponin I < 0.01 04/21/17 0030: Lactic Acid 1.9 04/20/17 2236: Lactic Acid 1.9 04/20/17 1815: pH 7.34 L, pCO2 41, pO2 64 L, HCO3 22, ABG O2 Sat (Measured) 92.0 L, P-50 ( Temp Corrected) Y, Carboxyhemoglobin 0.6 L, O2 Concentration % 100%, Temperature 97.7, O2 Delivery Method NRB, Phlebotomy Draw Site RIGHT RADIAL 04/20/17 1700: Estimated GFR 43 L, BUN/Creatinine Ratio 30.6 H 04/20/17 1558: Lactic Acid 3.6 H 04/20/17 1355: Lactic Acid 5.0 H 04/20/17 1328: Anion Gap 13, Estimated GFR 41 L, BUN/Creatinine Ratio 29.4 H, Glucose 288 H, Calcium 8.3 L, Total Bilirubin 0.6, AST 34, ALT 41, Alkaline Phosphatase 61, Troponin I < 0.01, Izf-B-Bkrnxtwtcua Pept 1500 H, Total Protein 5.4 L, Albumin 2.9 L, Globulin 2.5, Albumin/Globulin Ratio 1.2, PT 15.6 H, INR 1.43 H, APTT 33, D-Dimer High Sensitivty 450 H, CBC w Diff MAN DIFF ORDERED, RBC 4.88, MCV 83.7, MCH 28.4, MCHC 34.0, RDW 15.0 H, MPV 9.4, Gran % 93.4 H, Lymphocytes % 2.2 L, Monocytes % 4.4, Eosinophils % 0, Basophils % 0, Absolute Granulocytes 19.6 H, Segmented Neutrophils 70, Band Neutrophils 19 H, Absolute Lymphocytes 0.5 L, Lymphocytes 1 L, Monocytes 10 H, Absolute Monocytes 0.9 H, Absolute Eosinophils 0, Absolute Basophils 0, Polychromasia 1+, Anisocytosis 1+ Microbiology 04/21 299 URINE ROUT: Legionella Antigen - COMP 04/21 299 URINE ROUT: Streptococcus pneumoniae Antigen (M - COMP 04/20 1415 NASOPHARYN: Influenza Virus A & B Rapid Smear - COMP Diagnostic Data CXR Results SERVICE DATE: 04/20/17-1326 IMPRESSION: Large right-sided pleural-based mass measuring up to 13 x 8 cm concerning for a loculated pleural effusion. This finding will be more definitively characterized on the already ordered chest CTA. Assessment/Plan CRCU Impression/Plan: 66-year-old gentleman former smoker with past medical history significant for hypertension, diabetes with compilations of neuropathy, melanoma diagnosed three years ago and followed up at [facility], known lung nodule, history of right Hand Cellulitis admitted for shortness of breath, right-sided pleuritic chest pain, cough. Found to in acute hypoxic respiratory distress required nonrebreather and high flow oxygen. Per EMR Last pulmonary function tests done 10/25/16 : Moderate to severe obstructive lung disease with a partiallly reversible component. Significant improvement in [id number] following bronchodilators. CTA: 1. Large area of dense consolidation with air bronchograms of the right upper lobe. The central bronchial airways are open. No significant mediastinal lymphadenopathy or mass. 2. Increasing size of left lower lobe pulmonary mass now measuring 1.6 cm. 3. Scattered subtle groundglass opacities in the left upper lobe and lingula. PET scan done in October showed 1.1 cm left lower lobe nodule. Assessment and plan: Hypoxic respiratory failure secondary to community acquired pneumonia -Afebrile overnight with trending down leukocytosis -TRC/nebs, -Currently saturating 91% on 4 L nasal cannula, titrate to keep oxygen around 90 % -Afebrile overnight, leukocytosis trending down, with no bandemia. -We'll continue IV ceftriaxone, azithromycin and vancomycin pending final cultures, one of 2 blood cultures gram-positive [? Contamination], , strep pneumo and legionella antigens negative -Will IV steroids today and switch to PO tommorrow for total of five days as adjunctive therapy for community-acquired pneumonia. Hypertension -Continue Norvasc, aspirin and Zetia Diabetes -Fingersticks 114, 114, 177 -Continue Accu-Cheks, levemir 20 units every afternoon and NovoLog sliding scale -Diabetic diet 2 g sodium restriction Neuropathy -Continue gabapentin Pulmonary lung nodule - subpleural nodule left lower lobe posterior medially -Recent increase in size 0.8 cm on the PET/CT exam of 10/31/2016 now measures 1.6 cm. - workup as outpatient DVT prophylaxis: Subcutaneous heparin Full code Consult Acknowledgment - Thank you for your consult request. Nicanor JUSTIN,[facility] 04/21/17 0854: Assessment/Plan CRCU Other Findings/Comments: Seen and examined independently SIGNIFICANT DATA CTA reviewed which showed dense consolidation in the right upper lobe no significant lymphadenopathy 1.6 cm left lower lobe nodule with scattered groundglass opacity no venous thromboembolism PET scan done in October showed 1.1 cm left lower lobe nodule. Previous stress test showed possible fixed perfusion defect in the inferior wall Cultures gram-positive cocci in pairs and chains, in the blood Creatinine was elevated at 1.7 which seems to be improving Lactic acidosis seems to have resolved after aggressive fluid resuscitation White count 21.0 platelets adequate significant left shift ABG reviewed from this morning 737/41/59 on Liters Previous echocardiogram reviewed from September which showed normal ejection fraction and his stress test was reviewed as well as noted IMPRESSION This is a 66-year-old gentleman with history of hypertension, diabetes, previous melanoma, lung nodule which seems to be slowly increasing in size with previous PET negative, previous history of severe sepsis with strep, COPD now seem to have stopped smoking, morbid obesity with clinical evidence suggestive of severe sleep apnea, diabetic neuropathy, now comes in with * Significant community-acquired pneumonia requiring ICU admission - blood cultures growing gram-positive cocci both in pairs and chains. Patient has a dense lobar consolidation in the right upper lobe. * Significant sepsis status post resuscitation * Hypoxemic respiratory failure related to severe pneumonia compounded by previous chronic lung disease * COPD with prior smoking history * 1.6 cm increasing left lower lobe nodule with subtle groundglass opacities with previous PET negativity which needs to be evaluated after he improves * Morbid obesity with clinical evidence of BERLIN * Significant diabetes, neuropathy, hypertension, previous sepsis from strep with cellulitis. RECOMMENDATIONS/PLAN Continue ceftriaxone, and vancomycin, and azithromycin. Await cultures. Discontinue IV fluids, patient appears euvolemic. Start intravenous steroids at 60 mg Solu-Medrol today and changed to 40 mg prednisone from tomorrow Continue his other medications As needed nebulizer Continues gabapentin Low-dose morphine for pain Watch his blood pressure and heart rate Reduce his amlodipine to 5 mg Keep his sat at 90 percent Will rpt cxr and if stable will give him trial of lasix if he has pulm edema Consult Acknowledgment - Thank you for your consult request.
[2017-04-21 10:43] LABS: ABSOLUTE BASOPHIL COUNT 0 /CUMM (0.0-0.2); ABSOLUTE EOSINOPHIL COUNT 0 /CUMM (0.0-0.7); ABSOLUTE GRANULOCYTE CT 17.1 /CUMM (1.4-6.5); ABSOLUTE LYMPH COUNT 0.4 /CUMM (1.2-3.4); ABSOLUTE MONOCYTE COUNT 0.7 /CUMM (0.10-0.60); BASOPHIL % 0 % (0.0-2.0); EOSINOPHIL % 0 % (0-5); HEMATOCRIT 36.4 % (42-52); MEAN CORPUSCULAR HGB 28.3 PG (27.0-31.0); MEAN CORPUSCULAR HGB CONC 33.7 G/DL (33.0-37.0); MEAN CORPUSCULAR VOLUME 84.1 FL (80.0-94.0); MEAN PLATELET VOLUME 9.9 FL (7.4-10.4); PLATELET COUNT 215 /CUMM (130-400); RBC DISTRIBUTION WIDTH 15.3 % (11.5-14.5); RED BLOOD CELL CT 4.33 /CUMM (4.70-6.10); WHITE BLOOD CELL COUNT 18.2 /CUMM (4.8-10.8)
[2017-04-21 16:00] VITALS: BP 144/70
--- NOTE | 2017-04-21 16:53 | RADIOLOGY REPORT ---
EXAMINATION: XR PORTABLE CHEST CLINICAL INFORMATION: Hypoxic respiratory failure. Comparison from yesterday. Evaluate for pulmonary edema. COMPARISON: Chest x-ray dated 04/20/2017 and 09/19/2016. CTA of the chest dated 04/20/2017. TECHNIQUE: Portable AP semierect view of the chest was obtained. FINDINGS: Multiple EKG leads overlie the chest. The cardiomediastinal silhouette is enlarged. There is dense consolidation seen in the right midlung, corresponding to the dense pneumonia with air bronchograms seen on prior CT scan in the right upper lobe and lateral segment of the right middle lobe. Allowing for differences in technique, findings are similar to the previous exam. The nodular density seen on CT scan in the left lower lobe and the subtle groundglass opacities in the left upper lobe and lingula are not appreciated on this portable chest x-ray. The left lung remains fully expanded and appears clear on portable chest x-ray. No pulmonary edema is seen. Bony structures are grossly unremarkable. IMPRESSION: 1. No significant change in dense pneumonia in the right upper lobe and lateral segment of right middle lobe. 2. The nodular density seen on prior CT scan in the left lower lobe and the subtle groundglass opacities in the left upper lobe and lingula are not appreciated on this portable chest x-ray. 3. No evidence of pulmonary edema.
[2017-04-21 22:00] VITALS: BP 166/78
[2017-04-22 08:00] VITALS: BP 146/72
[2017-04-22 10:15] LABS: ABSOLUTE BASOPHIL COUNT 0 /CUMM (0.0-0.2); ABSOLUTE EOSINOPHIL COUNT 0 /CUMM (0.0-0.7); ABSOLUTE LYMPH COUNT 0.3 /CUMM (1.2-3.4); ABSOLUTE MONOCYTE COUNT 0.7 /CUMM (0.10-0.60); BASOPHIL % 0 % (0.0-2.0); EOSINOPHIL % 0 % (0-5); GRANULOCYTE % 93.5 % (42.2-75.2); HEMATOCRIT 39.7 % (42-52); MEAN CORPUSCULAR HGB 28.3 PG (27.0-31.0); MEAN CORPUSCULAR HGB CONC 33.4 G/DL (33.0-37.0); MEAN CORPUSCULAR VOLUME 84.7 FL (80.0-94.0); PLATELET COUNT 240 /CUMM (130-400); RBC DISTRIBUTION WIDTH 15.2 % (11.5-14.5); RED BLOOD CELL CT 4.69 /CUMM (4.70-6.10)
--- NOTE | 2017-04-22 11:02 | PN- Housestaff ---
Subjective Follow-up For: Community acquired pneumonia Sepsis Subjective: The patient was seen and examined this morning. He feels much improved. He denies any shortness of breath, chest pain, nausea, vomiting, dizziness, lightheadedness, abdominal pain, urinary symptoms. Has remained afebrile overnight. Blood pressure elevated to 160s over 80s. Leukocytosis has improved. Review of Systems Constitutional: Reports: no symptoms. Objective Last 24 Hrs of Vital Signs/I&O Vital Signs Date Time Temp Pulse Resp B/P B/P Pulse O2 O2 Flow FiO2 Mean Ox Delivery Rate 04/22 1336 85 161/83 04/22 0929 84 161/89 04/22 0928 93 Nasal 3.0L Cannula 04/22 08 94 Nasal 4.0L Cannula 04/22 08 97.8 84 20 146/72 94 Nasal 4.0L Cannula 04/22 0400 90 Nasal 4.0L Cannula 04/22 0000 90 Nasal 4.0L Cannula 04/21 2200 98.0 92 18 166/78 91 Nasal 4.0L Cannula 04/21 2000 92 Nasal 4.0L Cannula 04/21 1618 90 Nasal 5.0L Cannula 04/21 1600 96.5 93 24 144/70 92 Nasal 5.0L Cannula 04/21 1600 92 Nasal 5.0L Cannula 04/21 1415 92 Nasal 4.0L Cannula Intake & Output 04/22 1600 04/22 0800 04/22 0000 Intake Total 580 1220 Output Total 850 1050 Balance -270 170 Intake, IV 80 560 Intake, Oral 500 660 Output, Urine 850 1050 Physical Exam General Appearance: Alert, Oriented X3, Cooperative, No Acute Distress Other Physical Findings: Skin No Rashes, No Breakdown, No Significant Lesion Skin Temp/Moisture Exam: Warm/Dry Sepsis Skin Exam (color): Normal for Ethnicity HEENT Atraumatic, PERRLA, EOMI, Mucous Membr. moist/pink Neck Supple, No JVD, No thryomegaly, +2 Carotid Pulse wo Bruit, No LAD Lymphatic Cervical nl Cardiovascular Regular Rate, Normal S1, Normal S2, No Murmurs, Gallops, Rubs Lungs diminished breath sounds bilaterally Abdomen Normal Bowel Sounds, Soft, No Tenderness, No Hepatospenomegaly, No Masses Neurological Normal Speech, Strength at 5/5 X4 Ext, Normal Tone, Sensation Intact, Cranial Nerves 3-12 NL, Reflexes 2+ Extremities No Clubbing, No Cyanosis, Normal Pulses, No Tenderness/Swelling, b/l pedal edema; per patient his baseline Vascular Normal Pulses, Pulses Symmetrical Current Medications: Current Medications Sig/Mirna Start time Last Medication Dose Route Stop Time Status Admin Albuterol Sulfate 3 ML BID 04/21 1000 AC 04/22 INH 0927 Amlodipine Besylate 10 MG DAILY 04/23 1000 AC PO Amlodipine Besylate 5 MG ONCE ONE 04/22 1300 DC 04/22 PO 04/22 1301 1336 Amlodipine Besylate 5 MG DAILY 04/21 1000 DC 04/22 PO 0929 Aspirin Buffered 81 MG DAILY 04/21 1000 AC 04/22 PO 0929 Azithromycin 500 MG Q24H 04/21 1500 DC 04/21 Dextrose/Water 250 ML IV 04/21 1559 1553 Ceftriaxone Sodium 1,000 MG Q24H 04/22 1500 AC IV Ceftriaxone Sodium 1,000 MG Q24H 04/21 1500 DC 04/21 IV 04/21 1501 1549 Ezetimibe 10 MG DAILY 04/21 1000 AC 04/22 PO 0929 Furosemide 40 MG ONE ONE 04/22 1330 DC 04/22 PO 04/22 1331 1336 Furosemide 40 MG ONCE ONE 04/22 1245 CAN IV 04/22 1246 Gabapentin 300 MG TID 04/21 0052 AC 04/22 PO 0929 Heparin Sodium 5,000 UNIT Q8 04/21 0059 AC 04/22 (Porcine) SC 1336 Insulin Aspart 0 TIDAC 04/21 0800 AC 04/22 SC 1151 Insulin Detemir 20 UNITS QPM 04/21 2200 AC 04/21 ID 2211 Prednisone 40 MG DAILY 04/22 1000 AC 04/22 PO 04/25 1000 0929 Vancomycin HCl 1,500 MG Q24H 04/21 1900 AC 04/21 Dextrose/Water 250 ML IV 1855 Last 24 Hrs of Lab/Chris Results Last 24 Hrs of Labs/Mics: Laboratory Tests 04/22/17 0825: Anion Gap 9, Estimated GFR > 60, Glucose 180 H, Calcium 8.3 L, Phosphorus 3.7, Magnesium 2.7 H, Total Bilirubin 0.2, AST 24, ALT 32, Albumin 2.7 L, CBC w Diff MAN DIFF ORDERED, RBC 4.69 L, MCV 84.7, MCH 28.3, MCHC 33.4, RDW 15.2 H, MPV 10.0, Gran % 93.5 H, Lymphocytes % 1.9 L, Monocytes % 4.6, Eosinophils % 0 , Basophils % 0, Absolute Granulocytes 15.0 H, Segmented Neutrophils 80 H, Band Neutrophils 12 H, Absolute Lymphocytes 0.3 L, Lymphocytes 4 L, Monocytes 4, Absolute Monocytes 0.7 H, Absolute Eosinophils 0, Absolute Basophils 0, Platelet Estimate VERIFIED BY SMEAR, Polychromasia 1+, Anisocytosis 1+ Assessment/Plan Assessment: This is a 66-year-old gentleman with past medical history significant for hypertension, diabetes, melanoma, lung mass who presents to the hospital with congestion, right-sided chest pain and shortness of breath. Was admitted to the ICU for community-acquired pneumonia. Problem list #Acute hypoxic respiratory failure #Community-acquired pneumonia #Sepsis #KELSEY-resolved #Diabetes, hypertension, hyperlipidemia Plan and legionella antigen:negative home dose Problem List: 1. Pneumonia 2. Hypoxia Pain Ratin Pain Location: NA Pain Goal: Remain pain free Pain Plan: NA Tomorrow's Labs & Rationales: CBC to monitor leukocytosis BEP to monitor electrolytes DVT/Prophylaxis: pharmacological
--- NOTE | 2017-04-22 11:45 | Transfer of Care Summary ---
Hospital Course Course Hospital Course: This is a 66-year-old gentleman with past medical history significant for hypertension, diabetes, melanoma, lung mass who presents to the hospital with congestion, right-sided chest pain and shortness of breath. According to the patient, he started experiencing nasal congestion with cough/ clear sputum, shortness of breath and right-sided deep chest pain after each episode of cough. His symptoms started worsening and he decided to present to the hospital. He reported having some chills as well however denied having any subjective fever. The patient denied having any sick contacts. On admission, the patient denied any headache, dizziness, lightheadedness, nausea, vomiting, abdominal pain, urinary symptoms. His shortness of breath was much improved since his presentation to the ED; he was started on high flow oxygen. He also reported having right sided non radinating 3/10 chest pain. CTA on admission revealed large area of dense consolidation with air bronchograms of the right upper lobe. The central bronchial airways are open. No significant mediastinal lymphadenopathy or mass. Increasing size of left lower lobe pulmonary mass now measuring 1.6 cm. Scattered subtle groundglass opacities in the left upper lobe and lingula. Labs revealed WBC 21, granulocytosis and elevated creatinine to 1.6. Initially he had elevated lactic acid which normalized after IV fluid therapy. The patient was admitted to the ICU. The following problems were addressed during the course of his ICU stay: #Acute hypoxic respiratory failure likely 2/2 severe CAP: The patient was initially started on IV azithromycin, IV ceftriaxone and IV vancomycin. Later on antibiotic therapy was adjusted based on pulmonary recommendations to IV ceftriaxone 1 g daily. Blood cultures: gram positive cocci in one set, sputum culture: yeast, strep and legionella antigen:negative * TRC/nebs as needed * Continue with IV ceftriaxone 1 g daily * Continue with prednisone taper * Follow pulmonary recommendations #Diabetes, hypertension, hyperlipidemia: The patient was started on Levemir 20, usual home doses 40, his blood glucose levels have been well controlled while in the hospital, * Please assess for the dose of Levemir upon discharge. * Continue Accu-Cheks and sliding scale insulin * Blood pressure on the higher side today, amlodipine dose was increased from 5 to 10. * Please monitor blood pressure closely, continue with amlodipine 10 * Continue very low-dose aspirin, Zetia #KELSEY-resolved after receiving IV fluids * Losartan/hydrochlorothiazide was held on admission given AK I, please reassess when to start. #DVT prophylaxis: Subcutaneous heparin #Patient is full code Complications: None Pertinent Lab Results: Laboratory Tests 04/22 0825 Chemistry Sodium (137 - 145 mmol/L) 136 L Potassium (3.5 - 5.1 mmol/L) 4.6 Chloride (98 - 107 mmol/L) 102 Carbon Dioxide (22 - 30 mmol/L) 25 Anion Gap (5 - 16) 9 BUN (9 - 20 mg/dL) 44 H Creatinine (0.7 - 1.2 mg/dL) 1.1 Estimated GFR (>60 ml/min) > 60 Glucose (65 - 99 mg/dL) 180 H Calcium (8.4 - 10.2 mg/dL) 8.3 L Phosphorus (2.5 - 4.5 mg/dL) 3.7 Magnesium (1.6 - 2.3 mg/dL) 2.7 H Total Bilirubin (0.2 - 1.3 mg/dL) 0.2 AST (17 - 59 U/L) 24 ALT (21 - 72 U/L) 32 Albumin (3.5 - 5.0 g/dL) 2.7 L Hematology CBC w Diff MAN DIFF ORDERED WBC (4.8 - 10.8 /CUMM) 16.0 H RBC (4.70 - 6.10 /CUMM) 4.69 L Hgb (14.0 - 18.0 G/DL) 13.3 L Hct (42 - 52 %) 39.7 L MCV (80.0 - 94.0 FL) 84.7 MCH (27.0 - 31.0 PG) 28.3 MCHC (33.0 - 37.0 G/DL) 33.4 RDW (11.5 - 14.5 %) 15.2 H Plt Count (130 - 400 /CUMM) 240 MPV (7.4 - 10.4 FL) 10.0 Gran % (42.2 - 75.2 %) 93.5 H Lymphocytes % (20.5 - 51.1 %) 1.9 L Monocytes % (1.7 - 9.3 %) 4.6 Eosinophils % (0 - 5 %) 0 Basophils % (0.0 - 2.0 %) 0 Absolute Granulocytes (1.4 - 6.5 /CUMM) 15.0 H Segmented Neutrophils (42.2 - 75.2 %) 80 H Band Neutrophils (0.0 - 5.0 %) 12 H Absolute Lymphocytes (1.2 - 3.4 /CUMM) 0.3 L Lymphocytes (20.5 - 51.1 %) 4 L Monocytes (1.7 - 9.3 %) 4 Absolute Monocytes (0.10 - 0.60 /CUMM) 0.7 H Absolute Eosinophils (0.0 - 0.7 /CUMM) 0 Absolute Basophils (0.0 - 0.2 /CUMM) 0 Platelet Estimate (ADEQUATE) VERIFIED BY SMEAR Polychromasia 1+ Anisocytosis 1+ Assessment/Plan: See above.
--- NOTE | 2017-04-22 11:46 | PN- CRCU ---
Subjective HPI/Critical Care Issues: Doing much better Shortness of breath is improved Now down to nasal cannula On 3 L saturating 93% No other complaints other than pedal edema Blood pressure continues to be elevated Blood work reviewed Creatinine is down to 1.1 BUN 44 White count down to 1693% segs last INR was elevated last ABG reviewed Cultures lower extremity growing mixed brittanie with yeast Blood cultures highly suggestive of strep pneumo Objective Current Medications: Current Medications Sig/Mirna Start time Last Medication Dose Route Stop Time Status Admin Albuterol Sulfate 3 ML BID 04/21 1000 AC 04/22 INH 0927 Amlodipine Besylate 5 MG DAILY 04/21 1000 AC 04/22 PO 0929 Aspirin Buffered 81 MG DAILY 04/21 1000 AC 04/22 PO 0929 Azithromycin 500 MG Q24H 04/21 1500 DC 04/21 Dextrose/Water 250 ML IV 04/21 1559 1553 Ceftriaxone Sodium 1,000 MG Q24H 04/21 1500 DC 04/21 IV 04/21 1501 1549 Ezetimibe 10 MG DAILY 04/21 1000 AC 04/22 PO 0929 Gabapentin 300 MG TID 04/21 0052 AC 04/22 PO 0929 Heparin Sodium 5,000 UNIT Q8 04/21 0059 AC 04/22 (Porcine) SC 0504 Insulin Aspart 0 TIDAC 04/21 0800 AC 04/22 SC 0804 Insulin Detemir 20 UNITS QPM 04/21 2200 AC 04/21 SC 2211 Prednisone 40 MG DAILY 04/22 1000 AC 04/22 PO 14 1000 0929 Vancomycin HCl 1,500 MG Q24H 04/21 1900 AC 04/21 Dextrose/Water 250 ML IV 1855 Vital Signs & I&O Last 24 Hrs of Vitals and I&O: Vital Signs Date Time Temp Pulse Resp B/P B/P Pulse O2 O2 Flow FiO2 Mean Ox Delivery Rate 04/22 928 84 161/89 04/23 927 93 Nasal 3.0L Cannula 04/22 08 94 Nasal 4.0L Cannula 04/22 08 97.8 84 20 146/72 94 Nasal 4.0L Cannula 04/22 0400 90 Nasal 4.0L Cannula 04/22 0000 90 Nasal 4.0L Cannula 04/21 2200 98.0 92 18 166/78 91 Nasal 4.0L Cannula 04/21 2000 92 Nasal 4.0L Cannula 04/21 1618 90 Nasal 5.0L Cannula 04/21 1600 96.5 93 24 144/70 92 Nasal 5.0L Cannula 04/21 1600 92 Nasal 5.0L Cannula 04/21 1415 92 Nasal 4.0L Cannula 04/21 1200 92 Nasal 4.0L Cannula Intake & Output 04/22 1600 04/22 0800 04/22 0000 Intake Total 580 1220 Output Total 850 1050 Balance -270 170 Intake, IV 80 560 Intake, Oral 500 660 Output, Urine 850 1050 Impression/Plan Impression/Plan Impression/Plan: General Appearance: no apparent distress, alert, awake, comfortable Respiratory: normal breath sounds Cardiovascular: regular rate/rhythm Extremities: sig edema IMPRESSION This is a 66-year-old gentleman with history of hypertension, diabetes, previous melanoma, lung nodule which seems to be slowly increasing in size with previous PET negative, previous history of severe sepsis with strep, COPD now seem to have stopped smoking, morbid obesity with clinical evidence suggestive of severe sleep apnea, diabetic neuropathy, now comes in with * Significant community-acquired pneumonia requiring ICU admission - blood cultures growing gram-positive cocci both in pairs and chains. Patient has a dense lobar consolidation in the right upper lobe. Highly suggestive of Strep Pneumo * REsolved sepsis status post resuscitation * Resolved Hypoxemic respiratory failure related to severe pneumonia compounded by previous chronic lung disease * COPD with prior smoking history * 1.6 cm increasing left lower lobe nodule with subtle groundglass opacities with previous PET negativity which needs to be evaluated after he improves * Morbid obesity with clinical evidence of BERLIN * Significant diabetes, neuropathy, hypertension, previous sepsis from strep with cellulitis. RECOMMENDATIONS/PLAN Continue ceftriaxone one gram daily start this afternoon, and dc other antibiotics One dose of lasix 40 mg o Continue his other medications As needed nebulizer Continues gabapentin REsume his home dose of amlodapine to 10 mg Keep his sat at 90 percent Ok to the floor
[2017-04-22 15:41] VITALS: BP 140/88
[2017-04-22 22:09] VITALS: BP 150/80
[2017-04-23 06:05] VITALS: BP 140/84
--- NOTE | 2017-04-23 09:11 | PN- Housestaff ---
Elena JUSTIN,[facility] 04/23/17 0911: Subjective Follow-up For: Community Acquired Pneumonia Sepsis Acute Hypoxic Respiratory Failure Subjective: Patient was seen and examined at bedside. Reports feeling okay. He strongly wants to leave today as he works to [email or web address] and his job will be affected if he doesn't leave today. Review of Systems Constitutional: Reports: no symptoms. Objective Last 24 Hrs of Vital Signs/I&O Vital Signs Date Time Temp Pulse Resp B/P B/P Pulse O2 O2 Flow FiO2 Mean Ox Delivery Rate 04/23 1121 90 Room Air 04/23 0959 85 154/75 04/23 0800 95 Room Air 04/23 0605 97.8 77 20 140/84 94 04/23 0000 Nasal 2.0L Cannula 04/22 2209 98.1 83 20 150/80 93 Nasal 2.0L Cannula 04/22 1900 90 Nasal 2.0L Cannula 04/22 1600 93 Nasal 2.0L Cannula 04/22 1541 98.3 83 20 140/88 93 Nasal 2.0L Cannula 04/22 1336 85 161/83 Physical Exam General Appearance: Alert, Oriented X3, Cooperative, Mild Distress Skin: No Rashes, No Breakdown Skin Temp/Moisture Exam: Warm/Dry Sepsis Skin Exam (color): Normal for Ethnicity HEENT: Atraumatic Cardiovascular: Normal S1, Normal S2, No Murmurs Lungs: Normal Air Movement, scattered rhonchi Abdomen: Soft, No Tenderness Neurological: Normal Speech Extremities: No Edema Assessment/Plan Assessment: 66-year-old gentleman with past medical history significant for hypertension, diabetes, melanoma, lung mass who presented to the hospital with complains of congestion, right-sided chest pain and shortness of breath. He was intially admitted for acute hypoxic respiratory failure and sepsis secondary to CAP. After initial stabilization he was transferred to the general medicine floor. Assessment: 1. Acute hypoxic respiratory failure - resolved 2. Community-acquired pneumonia 3. Sepsis - resolved 4. KELSEY-resolved 5. History of Diabetes, hypertension, hyperlipidemia 6. Solitary Lung nodule with increase in size. Plan * Weaned off oxygen today. He is saturating 95% on room air. * Continue 1g Ceftriaxone IV today. * Patient is fairly adamant on being discharged. He has been explained the risks of being discharged early. He understands. * Will discharge him on a 7 day course of Levofloxacin 750mg * He has been strongly advised to follow up with his PCP and corporate officer within a week of discharge. * Also emphasized on follow up of his lung nodule. For now he wishes to follow up with his corporate officer at [place]. He has been provided with details of Dr Roper as well. * He was started on his home dose of Amlodipine yesterday. * He can be restarted on his Losartan/HCTZ today as his KELSEY has resolved. * Continue insulin SS and levemir 20mg QHS * Diet: Diabetic * DVT Prophylaxis: SC Heparin x 3 * Code: Full Problem List: 1. Pneumonia Pain Ratin Pain Location: none Pain Goal: Remain pain free Pain Plan: none Tomorrow's Labs & Rationales: none Yvonne Mcnamara 04/23/17 1132: Attending MD Review Statement Attending Statement Attending MD Statement: examined this patient, discuss w/resident/PA/MACHINE DESIGN ENGINEER, agreed w/resident/PA/MACHINE DESIGN ENGINEER, discussed with family, reviewed EMR data (avail), discussed with nursing, discussed with case mgmt, reviewed images, amended to note Attending Assessment/Plan: Patient transferred from ICU to [facility] for community acquired pneumonia being treated by iv ceftriaxone. Patient on room air and sat 91 percent on exertion. No use of accessory muscles. Patient wants to leave home. Patient can be discharged on PO antibitoics and advised to abstain from heavy work. Patient needs to follow up with PCP and his pulmonolgist in 1 week of discharge. Plan of care d/sun patient bedside.
[2017-04-23 09:59] VITALS: BP 154/75
--- NOTE | 2017-04-23 11:06 | Patient Discharge Instructions ---
Discharge Instructions General Discharge Information You were seen/treated for: Pneumonia Special Instructions: Please follow up with your PCP within one week of discharge Please follow up with your forest botany instructor within one week of discharge. Discuss your results of your most recent CT scan with your forest botany instructor. You are advised to abstain from exertional work for a few days. Diet Continue normal diet: Yes Recommended Diet: Diabetic Activity Full Activity/No Limits: Yes Acute Coronary Syndrome Inclusion Criteria At DC or during hospital stay patient has or had the following: ACS DIAGNOSIS No Discharge Core Measures Meds if any: Prescribed or Continued at Discharge Meds if any: NOT Prescribed or Continued at Discharge Congestive Heart Failure Inclusion Criteria At DC or during hospital stay patient has or had the following: CHF DIAGNOSIS No Discharge Core Measures Meds if any: Prescribed or Continued at Discharge Meds if any: NOT Prescribed or Continued at Discharge Cerebrovascular accident Inclusion Criteria At DC or during hospital stay patient has or had the following: CVA/TIA Diagnosis No Discharge Core Measures Meds if any: Prescribed or Continued at Discharge Meds if any: NOT Prescribed or Continued at Discharge Venous thromboembolism Inclusion Criteria VTE Diagnosis No VTE Type NONE VTE Confirmed by (Test) NONE Discharge Core Measures - Per Current guidelines, there needs to be overlap - treatment for the first 5 days of Warfarin therapy. - If discharged on Warfarin prior to 5 days of - overlap therapy, the patient will need to be - assessed for post discharge needs including - *Post discharge parental anticoagulation - *Warfarin and/or parental anticoagulation education - *Follow up date to check INR post discharge At least 5 days overlap therapy as Inpatient No Meds if any: Prescribed or Continued at Discharge Note: Overlap Therapy is Warfarin and Anticoagulant Meds if any: NOT Prescribed or Continued at Discharge
[2017-04-23] MEDS ORDERED: AUGMENTIN 875-1 EACH PO (11:09)
--- NOTE | 2017-04-23 11:35 | PN- Pulmonary ---
Subjective HPI/Critical Care Issues: pt seen and examined feeling better on room air wants to be discharged Objective Current Medications: Current Medications Sig/Mirna Start time Last Medication Dose Route Stop Time Status Admin Albuterol Sulfate 3 ML BID 04/21 1000 AC 04/23 INH 1118 Amlodipine Besylate 10 MG DAILY 04/23 1000 AC 04/23 PO 0959 Amlodipine Besylate 5 MG ONCE ONE 04/22 1300 DC 04/22 PO 04/22 1301 1336 Amlodipine Besylate 5 MG DAILY 04/21 1000 DC 04/22 PO 0929 Aspirin Buffered 81 MG DAILY 04/21 1000 AC 04/23 PO 1000 Ceftriaxone Sodium 1,000 MG Q24H 04/22 1500 AC 04/23 IV 0959 Ezetimibe 10 MG DAILY 04/21 1000 AC 04/23 PO 0959 Furosemide 40 MG .STK-MED ONE 04/22 1331 DC PO 04/22 1332 Furosemide 40 MG ONE ONE 04/22 1330 DC 04/22 PO 04/22 1331 1336 Furosemide 40 MG ONCE ONE 04/22 1245 CAN IV 04/22 1246 Gabapentin 300 MG TID 04/21 0052 AC 04/23 PO 0959 Heparin Sodium 5,000 UNIT Q8 04/21 0059 AC 04/23 (Porcine) SC 0521 Insulin Aspart 0 TIDAC 04/21 0800 AC 04/22 SC 1715 Insulin Detemir 20 UNITS QPM 04/21 2200 AC 04/22 SC 2141 Prednisone 40 MG DAILY 04/22 1000 AC 04/23 PO 04/25 1000 1000 Vancomycin HCl 1,500 MG Q24H 04/21 1900 DC 04/21 Dextrose/Water 250 ML IV 1855 Vital Signs & I&O Last 24 Hrs of Vitals and I&O: Vital Signs Date Time Temp Pulse Resp B/P B/P Pulse O2 O2 Flow FiO2 Mean Ox Delivery Rate 04/23 1121 90 Room Air 04/23 0959 85 154/75 04/23 0800 95 Room Air 04/23 0605 97.8 77 20 140/84 94 04/23 0000 Nasal 2.0L Cannula 04/22 2209 98.1 83 20 150/80 93 Nasal 2.0L Cannula 04/22 1900 90 Nasal 2.0L Cannula 04/22 1600 93 Nasal 2.0L Cannula 04/22 1541 98.3 83 20 140/88 93 Nasal 2.0L Cannula 04/22 1336 85 161/83 Exam Other Physical Findings: gen awake and alert heent ncat cvs s1, s2 lungs rare rhonchi scattered abd soft bs+ ext without edema Results Last 24 Hrs of Lab Results: Laboratory Tests 04/23/17 1115: Sodium Pending, Potassium Pending, Chloride Pending, Carbon Dioxide Pending, Anion Gap Pending, BUN Pending, Creatinine Pending, BUN/Creatinine Ratio Pending , CBC w Diff Pending, WBC Pending, RBC Pending, Hgb Pending, Hct Pending, MCV Pending, MCH Pending, MCHC Pending, RDW Pending, Plt Count Pending, MPV Pending Impression/Plan Impression/Plan Impression/Plan: Impression 66 year old man * RUL community acquired pna * LLL 1.6cm nodule changed from 0.8mm * hx of melanoma * COPD - hx of smoking Plan -pt clear about wanting to be discharged, he knows risks of being discharged prematurely, check his ambulatory o2 and if pt is feeling well and is not desaturating he can be discharged on oral therapy, can give a respiratory quinolone (Avelox) -his nodule and further imaging need to be followed - per pt he may want to continue his care including pulmonary follow up at [place], he has my information if he would like to follow with me, the urgency of follow up with made clear with the patient -cont inhalers, dc planning DVT prophylaxis while inpatient
[2017-04-23] MEDS ORDERED: LEVOFLOXACIN750 M1 PO ×2 (11:44→11:54)
--- NOTE | 2017-04-23 11:54 | Discharge Summary ---
Visit Information Visit Dates Admission Date: 04/20/17 Discharge Date: 04/23/17 Hospital Course Course Attending Physician: Yvonne Mcnamara MD Primary Care Physician: Naeem Laura MD Hospital Course: Mr Landin is a 66-year-old gentleman with past medical history significant for hypertension, diabetes, melanoma, known lung mass who presented to [facility] with congestion, right-sided chest pain and shortness of breath. The patient was initially admitted to the ICU. After initial stablization he was transferred to the general medicine floor. The following problems were addressed during the course of his stay: Acute hypoxic respiratory failure likely secondary to Community Acquired Pneumonia: On admission patient was found to be hypoxic. He was started on high flow oxygen via NC. CTA on admission revealed large area of dense consolidation with air bronchograms of the right upper lobe. He was initially started on IV azithromycin, IV ceftriaxone and IV vancomycin. Later on antibiotic therapy was adjusted based on pulmonary recommendations to IV ceftriaxone 1g daily. Blood cultures: gram positive cocci in one set, sputum culture: yeast, strep and legionella antigen were negative. * TRC/nebs as needed * Continue with IV ceftriaxone 1 g daily * Continue with prednisone taper * Follow pulmonary recommendations #Diabetes, hypertension, hyperlipidemia: The patient was started on Levemir 20, usual home doses 40, his blood glucose levels have been well controlled while in the hospital, * Please assess for the dose of Levemir upon discharge. * Continue Accu-Cheks and sliding scale insulin * Blood pressure on the higher side today, amlodipine dose was increased from 5 to 10. * Please monitor blood pressure closely, continue with amlodipine 10 * Continue very low-dose aspirin, Zetia #KELSEY-resolved after receiving IV fluids * Losartan/hydrochlorothiazide was held on admission given AK I, please reassess when to start. #DVT prophylaxis: Subcutaneous heparin Allergies: Coded Allergies: Penicillins (Severe, HIVES 09/15/16) latex (PEELS SKIN OFF PER PT 04/20/17) Significant Procedures: SERVICE DATE: 04/21/17-1199 EXAM TYPE: RAD - XRY-PORTABLE CHEST XRAY FINDINGS: Multiple EKG leads overlie the chest. The cardiomediastinal silhouette is enlarged. There is dense consolidation seen in the right midlung, corresponding to the dense pneumonia with air bronchograms seen on prior CT scan in the right upper lobe and lateral segment of the right middle lobe. Allowing for differences in technique, findings are similar to the previous exam. The nodular density seen on CT scan in the left lower lobe and the subtle groundglass opacities in the left upper lobe and lingula are not appreciated on this portable chest x-ray. The left lung remains fully expanded and appears clear on portable chest x-ray. No pulmonary edema is seen. Bony structures are grossly unremarkable. IMPRESSION: 1. No significant change in dense pneumonia in the right upper lobe and lateral segment of right middle lobe. 2. The nodular density seen on prior CT scan in the left lower lobe and the subtle groundglass opacities in the left upper lobe and lingula are not appreciated on this portable chest x-ray. 3. No evidence of pulmonary edema. SERVICE DATE: 04/20/17 EXAM TYPE: CAT - CTA CHEST-PULMONARY EMBOLISM FINDINGS: QUALITY OF STUDY/CONTRAST BOLUS: Satisfactory PULMONARY ARTERIES: No central or segmental pulmonary emboli. THORACIC AORTA: No aneurysm or dissection. There is atherosclerotic vascular wall calcifications of the aorta. LUNG: There is a large area of lobar dense consolidation with air bronchograms of the right upper lobe. This primarily affects the posterior and peripheral mid right upper lobe. There is linear opacities of dependent atelectasis at the left lung base. There are also scattered subtle small groundglass alveolar opacities in the left upper lobe and lingula. This primarily affects the central left lung. There is a subpleural nodule left lower lobe posterior medially. This measures 1.6 cm. This nodule measured 0.8 cm on the PET/CT exam of 10/31/2016. The central bronchial airways are open. PLEURA: No pleural effusion or pneumothorax. MEDIASTINUM: There is no mediastinal mass or significant lymphadenopathy. There are small shotty subcentimeter lymph nodes in the mediastinum unchanged since prior exam. There is no pericardial effusion. CHEST WALL/AXILLA: No axillary or internal mammary lymphadenopathy. OSSEOUS STRUCTURES: Degenerative spondylosis spine with multilevel endplate spurring of the vertebrae. UPPER ABDOMEN: Unremarkable. No reflux of contrast into the hepatic veins to suggest elevated right heart pressures. IMPRESSION: 1. Large area of dense consolidation with air bronchograms of the right upper lobe. The central bronchial airways are open. No significant mediastinal lymphadenopathy or mass. 2. Increasing size of left lower lobe pulmonary mass now measuring 1.6 cm. 3. Scattered subtle groundglass opacities in the left upper lobe and lingula. VTE: negative SERVICE DATE: 04/20/17 EXAM TYPE: RAD - XRY-PORTABLE CHEST XRAY FINDINGS: Approximately 13 x 8 cm lesion is present in the right lateral chest which has the imaging appearance of a pleural based mass such as loculated pleural effusion. This finding will be further assessed on the already ordered chest CTA. The left lung is grossly clear. The cardiomediastinal silhouette appears normal. IMPRESSION: Large right-sided pleural-based mass measuring up to 13 x 8 cm concerning for a loculated pleural effusion. Disposition Summary Disposition Discharge Disposition: home or self care Discharge Instructions General Discharge Information Code Status: Full Code Patient's Activity: As tolerated Follow-Up Instructions/Appts: Please follow up with your PCP within one week of discharge Please follow up with your photocomposition keyboard operator within one week of discharge. Discuss your results of your most recent CT scan with your photocomposition keyboard operator. You are advised to abstain from exertional work for a few days. Medications at Discharge Discharge Medications: Continue taking these medications: Insulin Glargine,Hum.rec.anlog (Lantus Solostar) 100 UNIT/ML (3 ML) INSULN.PEN 40 Unit Inject into fatty tissue Every night Qty = 15 Comments: Last Taken: 09/21/16 Time: 8:00 AM Dulaglutide (Trulicity) (Unknown Strength) PEN.INJCTR Unknown Dose Inject into fatty tissue EVERY SUNDAY Qty = 2 Comments: NOT GIVEN IN HOSPITAL Empagliflozin (Jardiance) 10 MG TABLET 1 Tablet ORAL DAILY Qty = 30 Comments: NOT GIVEN IN HOSPITAL Celecoxib (Celecoxib) 200 MG CAPSULE 2 Capsule ORAL Every Morning Qty = 60 Comments: NOT GIVEN IN HOSPITAL Furosemide (Furosemide) 20 MG TABLET 1 Tablet ORAL DAILY Qty = 30 Comments: Last Taken: 04-22-17 Time: 1336 Gabapentin (Gabapentin) 300 MG CAPSULE 1 Capsule ORAL THREE TIMES DAILY Qty = 90 Comments: Last Taken: 04-23-17 Time: 1000 AM Metformin HCl (Metformin HCl) 1,000 MG TABLET 1 Tablet ORAL TWICE DAILY Qty = 180 Comments: NOT GIVEN IN HOSPITAL Losartan/Hydrochlorothiazide (Losartan-Hctz 100-12.5 MG Tab) 100 MG-12.5 MG TABLET 1 Tablet ORAL DAILY Qty = 90 Comments: NOT TAKEN THIS ADMISSION Aspirin (Ecotrin*) 81 MG TABLET.DR Guillermo Tablet ORAL DAILY Comments: Last Taken:04-23-17 Time:1000 Amlodipine Besylate (Amlodipine Besylate) 10 MG TABLET 1 Tablet ORAL DAILY Qty = 30 Comments: Last Taken:04-23-17 Time:1000 Ezetimibe (Zetia) 10 MG TABLET 1 Tablet ORAL DAILY Qty = 30 Comments: Last Taken:04-23-17 Time:1000 Ketoconazole (Nizoral) 2 % SHAMPOO 1 Application On the skin ONCE A WEEK Qty = 120 Ketoconazole (Ketoconazole) 2 % CREAM..G. 1 Application On the skin as needed for SKIN Qty = 60 Instructions: apply to affected area(s) Hydrocortisone (Hydrocortisone) 2.5 % CREAM..G. 1 Application On the skin as needed for SKIN - NOSE Qty = 2835 Instructions: apply to affected area(s) Pyridoxine HCl (Vitamin B-6) 50 MG TABLET 1 Tablet ORAL DAILY Cyanocobalamin (Vitamin B-12) (Vitamin B-12) 500 MCG TABLET 1 Tablet ORAL DAILY Breaks-3S/Dha/Epa/Fish Oil (Fish Oil 1,000 MG Softgel) 300 MG (250 MG-50 MG)-1, 000 MG CAPSULE 1 SGL ORAL TWICE DAILY Comments: NOT GIVEN THIS ADMIT Start taking the following new medications: Levofloxacin (Levofloxacin) 750 MG TABLET 1 Tablet ORAL DAILY Qty = 7 No Refills Copies To: Naeem Laura MD, MD Review Statement Documenting Attending: Yvonne Mcnamara MD Other Findings: Patient transferred from ICU to [facility] for community acquired pneumonia being treated by iv ceftriaxone. Patient on room air and sat 91 percent on exertion. No use of accessory muscles. Patient wants to leave home. Patient can be discharged on PO antibitoics and advised to abstain from heavy work. Patient needs to follow up with PCP and his pulmonolgist in 1 week of discharge. Plan of care d/wed patient bedside. Copies To: Naeem Laura MD, MD Review Statement Documenting Attending: Yvonne Mcnamara MD Other Findings: Patient transferred from ICU to [facility] for community acquired pneumonia being treated by iv ceftriaxone. Patient on room air and sat 91 percent on exertion. No use of accessory muscles. Patient wants to leave home. Patient can be discharged on PO antibitoics and advised to abstain from heavy work. Patient needs to follow up with PCP and his pulmonolgist in 1 week of discharge. Plan of care d/wed patient bedside.
[2017-04-23 14:41] LABS: ABSOLUTE BASOPHIL COUNT 0 /CUMM (0.0-0.2); ABSOLUTE EOSINOPHIL COUNT 0 /CUMM (0.0-0.7); ABSOLUTE GRANULOCYTE CT 13.3 /CUMM (1.4-6.5); ABSOLUTE LYMPH COUNT 0.7 /CUMM (1.2-3.4); ABSOLUTE MONOCYTE COUNT 1.1 /CUMM (0.10-0.60); BASOPHIL % 0 % (0.0-2.0); EOSINOPHIL % 0.1 % (0-5); GRANULOCYTE % 87.8 % (42.2-75.2); HEMATOCRIT 42.8 % (42-52); MEAN CORPUSCULAR HGB 28.6 PG (27.0-31.0); MEAN PLATELET VOLUME 9.9 FL (7.4-10.4); PLATELET COUNT 272 /CUMM (130-400); RBC DISTRIBUTION WIDTH 15.2 % (11.5-14.5)
[2017-04-23 15:09] LABS: WHITE BLOOD CELL COUNT 15.2 /CUMM (4.8-10.8)
== END 2017-04-23 13:13 | DRG 871 ==
LOC: ERH 12:54 → ERHI 19:47 → 2NB 19:47 → ENRESERV 23:07 → 2NB 23:40 → CRI 23:57 → ENTRNSPT 04-22 14:34 → 2NB 04-22 15:22 → CMPTRNSPT 04-22 15:28 → 2NB 04-23 07:46 → ENPENDDIS 04-23 12:12 → ENTRNSPT 04-23 12:46 → EDTRNSPTSTS 04-23 13:10 → 2NB 04-23 13:13 → CMPTRNSPT 04-23 13:19
PROVIDERS: Internal Medicine; Physician Assistant; Student in an Organized Health Care Education/Training Program
DX: A41.9 Sepsis, unspecified organism (principal); J96.01 Acute respiratory failure with hypoxia; N17.9 Acute kidney failure, unspecified; E87.2 Acidosis; J18.9 Pneumonia, unspecified organism; J44.0 Chronic obstructive pulmonary disease with (acute) lower respiratory infection; E11.42 Type 2 diabetes mellitus with diabetic polyneuropathy; E66.01 Morbid (severe) obesity due to excess calories; Z79.4 Long term (current) use of insulin; Z85.820 Personal history of malignant melanoma of skin; Z88.0 Allergy status to penicillin; Z91.040 Latex allergy status; Z79.84 Long term (current) use of oral hypoglycemic drugs; R91.1 Solitary pulmonary nodule; Z68.36 Body mass index [BMI] 36.0-36.9, adult; G47.33 Obstructive sleep apnea (adult) (pediatric); I10 Essential (primary) hypertension; K21.9 Gastro-esophageal reflux disease without esophagitis; E78.5 Hyperlipidemia, unspecified; Z96.642 Presence of left artificial hip joint
CPT/HCPCS: 2NSBP; CCU; 36415; 71045; 82436; 87040; 87070; 87071; 87449; 87450; 87804; 87804-59; 93005; 93010; J0456; J0696; J1644; J1940; J2930; J3370; J7040; J7060

== ENCOUNTER 2017-06-06 18:17 | Inpatient (IN) | payer OTHER, MEDICARE ==
[~2017-06-06] VITALS: Ht 177.8 cm; Wt 113.5 kg
[~2017-06-06 18:17] MED LIST changes: +AMLODIPINE BESY10 M1 PO; +ASPIRIN EC81 M1 PO; +AUGMENTIN 875-1 EACH PO; +FISH OIL 1,0001 EAC5 PO; +HYDROCORTISO453.6 G2 TOP; +KETOCONAZOLE15 GM TOP; +LEVOFLOXACIN750 M1 PO; +NIZORAL120 ML TOP; +VITAMIN B-12500 MC2 PO; +VITAMIN B-650 M2 PO; +ZETIA10 M1 PO
--- NOTE | 2017-06-06 18:55 | ED AMS/SEIZURE/WEAK/DIZZY ---
History of Present Illness General Chief Complaint: Dyspnea (COPD, CHF, Other) Stated Complaint: PT IS SHAKEY AND PROBLEM BREATHING Source: patient, family, old records Exam Limitations: no limitations Vital Signs & Intake/Output Vital Signs & Intake/Output Vital Signs Date Time Temp Pulse Resp B/P B/P Pulse O2 O2 Flow FiO2 Mean Ox Delivery Rate 06/06 2222 98.8 97 20 125/61 95 Room Air 06/06 2212 Room Air 06/063 101.8 06/06 2053 101.8 106 20 144/63 96 Room Air 06/06 1824 100.1 120 18 129/88 94 Room Air Allergies Coded Allergies: Penicillins (Severe, HIVES 09/15/16) latex (PEELS SKIN OFF PER PT 04/20/17) Reconcile Medications Amlodipine Besylate 10 MG TABLET 1 TAB PO DAILY BP (Reported) Aspirin (Ecotrin*) 81 MG TABLET.DR 1 TAB PO DAILY HEART/BLOOD (Reported) Celecoxib 200 MG CAPSULE 2 CAP PO QAM PAIN/INFLAMMATION (Reported) Cyanocobalamin (Vitamin B-12) (Vitamin B-12) 500 MCG TABLET 1 TAB PO DAILY SUPPLEMENT (Reported) Dulaglutide (Trulicity) (Unknown Strength) PEN.INJCTR (Unknown Dose) SC QSAT DM (Reported) Empagliflozin (Jardiance) 10 MG TABLET 1 TAB PO DAILY DIABETES (Reported) Ezetimibe (Zetia) 10 MG TABLET 1 TAB PO DAILY CHOLESTEROL (Reported) Furosemide 20 MG TABLET 1 TAB PO DAILY WATER RETENTION (Reported) Gabapentin 300 MG CAPSULE 1 CAP PO TID PAIN (Reported) Hydrocortisone 2.5 % CREAM..G. 1 TASHA TOP PRN SKIN - NOSE (Reported) apply to affected area(s) Insulin Glargine,Hum.rec.anlog (Lantus Solostar) 100 UNIT/ML (3 ML) INSULN.PEN 40 UNIT SC QPM DIABETES (Reported) Ketoconazole (Nizoral) 2 % SHAMPOO 1 TASHA TOP ONCE A WEEK SCALP (Reported) Ketoconazole 2 % CREAM..G. 1 TASHA TOP PRN SKIN (Reported) apply to affected area(s) Losartan/Hydrochlorothiazide (Losartan-Hctz 100-12.5 MG Tab) 100 MG-12.5 MG TABLET 1 TAB PO DAILY HEART (Reported) Metformin HCl 1,000 MG TABLET 1 TAB PO BID DIABETES (Reported) [place]-3S/Dha/Epa/Fish Oil (Fish Oil 1,000 MG Softgel) 300 MG (250 MG-50 MG)-1, 000 MG CAPSULE 1 SGL PO BID SUPPLEMENT (Reported) Pyridoxine HCl (Vitamin B-6) 50 MG TABLET 1 TAB PO DAILY SUPPLEMENT (Reported ) Triage Note: 66 YO MALE TO TRIAGE C/O DIZZINESS SINCE THIS AFTERNOON, STATSE "I WASNT DOING ANYTHING WHEN IT STARTED" DENIES ANY PAIN. HX OF DIABETES, ALSO ADMITS TO DRUG USE BUT "I DONT KNOW WHAT DRUGS I USE, I COULDNT TELL YOU" DENIES ALCHOL USE. HR 120 IN TRIAGE, EKG ORDERED. Triage Nurses Notes Reviewed? yes Onset: Abrupt Duration: day(s): (1), constant Timing: recent history Injury Environment: home Severity: moderate Severity Numbers: 7 No Modifying Factors: none Associated Symptoms: denies HPI: 66 year old male past medical history significant for hypertension, diabetes, melanoma, known lung mass who was recently hospitalized last month for acute hypoxic respiratory failure secondary to community-acquired pneumonia presents the ER for evaluation complaining of chills and generalized feeling unwell short of breath since today rate cough. He denies recent exposure to sick contacts. No chest pain palpitations. The patient myself denies any alcohol or drug use however in triage admitted to alcohol and unknown drug use today. (Crow Law) Past History Travel History Traveled to [place] past 21 day No Medical History Any Pertinent Medical History? see below for history Neurological: NONE, peripheral neuropathy EENT: NONE Cardiovascular: hypertension, hyperlipidemia Respiratory: NONE Gastrointestinal: GERD Hepatic: NONE Renal: NONE Musculoskeletal: NONE Psychiatric: NONE Endocrine: diabetes Blood Disorders: NONE Cancer(s): melanoma CLINICAL APPLICATION SPECIALIST/Reproductive: NONE History of MRSA: No History of VRE: No History of CDIFF: No Surgical History Surgical History: MELANOMA REMOVED FROM BACK L HIP REPLACEMENT Psychosocial History Who do you live with Mother Services at Home None What is your primary language Azeri Tobacco Use: Never used ETOH Use: denies use Family History Hx Contributory? No (Crow Law) Review of Systems Review of Systems Constitutional: Reports: see HPI. Comments Review of systems: See HPI, All other systems negative. Constitutional, chills fever HEENT: no sore throat no congestion Cardiovascular: No chest pain Skin: no rashes, no change in skin Respiratory: No dyspnea no cough no sputum GI: No nausea no vomiting, no diarrhea : No dysuria No hematuria, no frequency Muscle skeletal: No joint pain, no back pain Neurologic: , no headache Heme/endocrine: No bruising Immunology: No lymphadenopathy (Crow Law) Physical Exam Physical Exam General Appearance: well developed/nourished, alert, awake Comments: Well-developed well-nourished person in no acute distress HEENT: Normal EENT exam; PERRL, EOMI, HEAD is atraumatic. moist mucous membranes. Neck: Supple, normal range of motion Back:Full range of motion Cardiovascular: Regular rate and rhythms no murmurs Respiratory: No respiratory distress. Patient speaking in full complete sentences. Breath sounds clear to auscultation bilaterally: NO W/R/R Abdomen: Soft, nontender nondistended, no appreciable organomegaly. Normal bowel sounds. No rebound/guarding Extremity: No edema, full range of motion of extremities, 5 out of 5 strength noted to bilateral upper and lower extremities Neuro: Alert oriented x3, motor sensory normal, There were no obvious focal neurologic abnormalities. Skin: No appreciable rash on exposed skin, skin is warm and dry. Psych: Mood and affect is normal, memory and judgment is normal. Core Measures ACS in differential dx? Yes CVA/TIA Diagnosis No Sepsis Present: Yes Sepsis Focused Exam Completed? Yes (Crow Law) ED Sepsis Exam Date of Focused Sepsis Exam: 06/06/17 Time of Focused Sepsis Exam: 1929 Sepsis Cardiac Exam: Tachycardia Sepsis Resp Exam: CTA Sepsis Cap Refill Exam: <2 Sec Sepsis Peripheral Pulse Exam: Normal Sepsis Peripheral Pulse Location: Radial Sepsis Skin Color Exam: Normal for Ethnicity Skin Temp/Moisture Exam: Warm/Dry (Crow Law) Progress Differential Diagnosis: arrythmia, alcohol intoxication, benign positional vertigo, drug intoxication, electrolyte imbalance, hypoglycemia, hypoxia, sepsis , UTI/pyelo, pna, uti, ami,afib Plan of Care: Orders Procedure Date/time Status Consistent Carbohydrate 3 06/07 B Active CBC WITHOUT DIFFERENTIAL 06/07 599 Active BASIC ELECTROLYTES PLUS BUN&CR 06/07 599 Active Lab Add-on Test 06/07 2223 Active Pathway - chart 06/06 2152 Active TRC EVALUATION (GEN) 06/06 2150 Active Saline Lock 06/06 2150 Active Pathway - chart 06/06 2150 Active House Staff 06/06 2150 Active Code Status 06/06 215 Active Patient Data 06/06 2138 Active STREP PNEUMO URINARY ANTIGEN 06/07 1999 Active LEGIONELLA URINARY ANTIGEN 06/07 1999 Active OXYGEN SETUP (GEN) 06/06 1922 Active Saline Lock 06/06 1922 Active Admit to inpatient 06/06 1922 Active Vital Signs 06/06 192 Active Activity/Ambulation 06/06 1922 Active Code Status 06/06 1922 Complete URINE DRUG SCREEN FOR ER ONLY 06/06 184 Complete B-TYPE NATRIURETIC PEP (BNP) 06/06 1845 Active CIWA 06/06 1828 Active RAPID VIRAL INFLUENZA A 06/06 182 Active BLOOD CULTURE 06/06 182 Active URINALYSIS 06/06 182 Complete TROPONIN LEVEL 06/06 182 Active LACTIC ACID 06/06 182 Active ETHANOL 06/06 182 Active COMPREHENSIVE METABOLIC PANEL 06/06 182 Active CBC WITHOUT DIFFERENTIAL 06/06 1825 Complete EKG 06/06 182 Active VTE Mechanical Prophylaxis 06/06 UNK Active Vital Signs 06/06 UNK Active Intake & Output 06/06 UNK Active FingerStick- Glucose 06/06 UNK Active CIWA 06/06 UNK Active Current Medications Sig/Mirna Start time Last Medication Dose Stop Time Status Admin Insulin Aspart 0 AT BEDTIME 06/07 2100 AC (NovoLOG) Amlodipine Besylate 10 MG DAILY 06/07 899 UNVr (Norvasc) Aspirin Buffered 81 MG DAILY 06/07 899 UNVr (Ecotrin) Enoxaparin Sodium 40 MG DAILY 06/07 899 UNVr (Lovenox) Ezetimibe 10 MG DAILY 06/07 899 UNVr (Zetia) Gabapentin 300 MG TID 06/07 899 UNVr (Neurontin) Losartan Potassium 100 MG DAILY 06/07 09 AC (Cozaar) Insulin Aspart 0 TIDAC 06/07 08 AC (NovoLOG) Insulin Detemir 20 UNITS BID 06/06 2229 AC (Levemir) Acetaminophen 650 MG Q6P PRN 06/06 2199 UNVr (Tylenol) Acetaminophen 1,000 MG Q6P PRN 06/06 2199 UNVr (Ofirmev) Oxycodone/ 2 TAB Q6P PRN 06/06 2199 AC Acetaminophen (Percocet) Sodium Chloride 1,000 ML .Q10H 06/06 2144 UNVr (Normal Saline 0.9%) Laboratory Tests 06/06/172125: Lactic Acid Cancelled 06/06/171999: Urine Opiates Screen < 100, Methadone Screen < 40, Barbiturate Screen < 60, Ur Phencyclidine Scrn < 6.00, Amphetamines Screen < 100, U Benzodiazepines Scrn < 85, Urine Cocaine Screen < 50, Urine Cannabis Screen < 5.00, Urine Color YEL, Urine Clarity CLEAR, Urine pH 6.5, Ur Specific [place] 1.020, Urine Protein 100 H, Urine Ketones NEG, Urine Nitrite NEG, Urine Bilirubin NEG, Urine Urobilinogen 0.2, Ur Leukocyte Esterase NEG, Ur Microscopic SEDIMENT EXAMINED, Urine RBC 5-10 H, Urine WBC RARE, Ur Epithelial Cells RARE, Urine Mucus RARE, Urine Hemoglobin SMALL H, Urine Glucose >=1000 H 06/06/171844: Anion Gap 11, Estimated GFR > 60, BUN/Creatinine Ratio 31.1 H, Glucose 202 H, Lactic Acid 1.8, Calcium 9.2, Total Bilirubin 0.6, AST 25, ALT 35, Alkaline Phosphatase 93, Troponin I < 0.01, [id number] Pept Pending, Total Protein 6.5, Albumin 3.8, Globulin 2.7, Albumin/Globulin Ratio 1.4, CBC w Diff MAN DIFF ORDERED, RBC 5.21, MCV 83.0, MCH 28.1, MCHC 33.9, RDW 15.3 H, MPV 9.1, Gran % 88.8 H, Lymphocytes % 3.7 L, Monocytes % 7.0, Eosinophils % 0.2, Basophils % 0.3, Absolute Granulocytes 12.3 H, Segmented Neutrophils 86 H, Band Neutrophils 8 H, Absolute Lymphocytes 0.5 L, Lymphocytes 1 L, Monocytes 5, Absolute Monocytes 1.0 H, Absolute Eosinophils 0, Absolute Basophils 0, Platelet Estimate ADEQUATE, Poikilocytosis 1+, Anisocytosis 1+, Stomatocytes 2+, Serum Alcohol < 10.0 Microbiology 06/06 2024 BLOOD: Blood Culture - RECD 06/07 2019 BLOOD: Blood Culture - RECD 06/07 1999 URINE ROUT: Legionella Antigen - RECD 06/07 1999 URINE ROUT: Streptococcus pneumoniae Antigen (M - RECD 06/06 1835 NASOPHARYN: Influenza Virus A & B Rapid Smear - RECD Diagnostic Imaging: Viewed by Me: Radiology Read. Discussed w/RAD: Radiology Read. Radiology Impression: PATIENT: CARLENE BEARD JR PRESENT AGE: 66 PATIENT ACCOUNT NO: [id number] : 50 LOCATION: [facility] ORDERING PHYSICIAN: Medina VALDEZ SERVICE DATE: 06/06/17 EXAM TYPE: RAD - XRY-CHEST XRAY, TWO VIEWS EXAMINATION: XR CHEST CLINICAL INFORMATION : 66-year-old man with fever. COMPARISON: 04/21/2017 chest radiograph TECHNIQUE: 2 views of the chest were obtained. FINDINGS: Previously noted dense consolidation in the right lung has essentially completely resolved. On today's exam, there is coarse reticular opacity seen throughout both lungs that could reflect an atypical pneumonia versus mild interstitial edema. Heart size is prominent, although stable. There are no pleural effusions. IMPRESSION: Essentially complete interval resolution of previously noted dense right lung consolidation. New diffuse reticular opacities could reflect an atypical pneumonia versus interstitial pulmonary edema. DICTATED BY: Divine Alberts MD DATE/ TIME DICTATED:06/06/171901 PROMOTIONS TEAM LEADER:MARIA ESTHER DATE/TIME TRANSCRIBED: 06/06/171901 CONFIDENTIAL, DO NOT COPY WITHOUT APPROPRIATE AUTHORIZATION. < Electronically signed in Other Vendor System> SIGNED BY: Divine Alberts MD 1906 Initial ED EKG: stach at 120, no acute st seg changes, normal axis Prior EKG: unchanged Rhythm Strip: sinus tachycardia Hand-Off Endorsed To: West Clayton MD Endorsed Time: 1999 Pending: labs (Crow Law) Departure Departure Disposition: STILL A PATIENT Condition: Stable Clinical Impression Primary Impression: Pneumonia Secondary Impressions: Sepsis Referrals: Naeem Laura MD (PCP/Family) Departure Forms: Customer Survey General Discharge Information Admission Note Documentation of Exam: Documentation of any treatments & extenuating circumstances including Concerns Regarding Discharge (functional status, medication knowledge or non-compliance, living conditions, etc.) that warrant an admission rather than observation: IV antibiotics trend labs drawn cultures IV fluids premature discharge would BE medically harmful ([place]row Law) Admission Note Spoke With: Nickie Edwards MD Documentation of Exam: Documentation of any treatments & extenuating circumstances including Concerns Regarding Discharge (functional status, medication knowledge or non-compliance, living conditions, etc.) that warrant an admission rather than observation: PA/INTERNET SYSTEMS ADMINISTRATOR Co-Sign Statement Statement: ED Attending supervision documentation- x I saw and evaluated the patient. I have also reviewed all the pertinent lab results and diagnostic results. I agree with the findings and the plan of care as documented in the PA's/INTERNET SYSTEMS ADMINISTRATOR's documentation. Recent pneumonia and respiratory failure with fever, weakness atypical pneumonia on CXR. [] I have reviewed the ED Record and agree with the PA's/INTERNET SYSTEMS ADMINISTRATOR's documentation. [] Additions or exceptions (if any) to the PAs/INTERNET SYSTEMS ADMINISTRATOR's note and plan are summarized below: [] (Matilde JUSTIN,West)
[2017-06-06 18:59] LABS: ABSOLUTE BASOPHIL COUNT 0 /CUMM (0.0-0.2); ABSOLUTE EOSINOPHIL COUNT 0 /CUMM (0.0-0.7); ABSOLUTE GRANULOCYTE CT 12.3 /CUMM (1.4-6.5); ABSOLUTE LYMPH COUNT 0.5 /CUMM (1.2-3.4); BASOPHIL % 0.3 % (0.0-2.0); EOSINOPHIL % 0.2 % (0-5); GRANULOCYTE % 88.8 % (42.2-75.2); HEMATOCRIT 43.2 % (42-52); MEAN CORPUSCULAR HGB 28.1 PG (27.0-31.0); MEAN CORPUSCULAR HGB CONC 33.9 G/DL (33.0-37.0); MEAN PLATELET VOLUME 9.1 FL (7.4-10.4); PLATELET COUNT 280 /CUMM (130-400); RBC DISTRIBUTION WIDTH 15.3 % (11.5-14.5); RED BLOOD CELL CT 5.21 /CUMM (4.70-6.10); WHITE BLOOD CELL COUNT 13.9 /CUMM (4.8-10.8)
--- NOTE | 2017-06-06 19:07 | RADIOLOGY REPORT ---
EXAMINATION: XR CHEST CLINICAL INFORMATION: 66-year-old man with fever. COMPARISON: 04/21/2017 chest radiograph TECHNIQUE: 2 views of the chest were obtained. FINDINGS: Previously noted dense consolidation in the right lung has essentially completely resolved. On today's exam, there is coarse reticular opacity seen throughout both lungs that could reflect an atypical pneumonia versus mild interstitial edema. Heart size is prominent, although stable. There are no pleural effusions. IMPRESSION: Essentially complete interval resolution of previously noted dense right lung consolidation. New diffuse reticular opacities could reflect an atypical pneumonia versus interstitial pulmonary edema.
--- NOTE | 2017-06-06 21:44 | History & Physical ---
Nkechi Kidd MD 06/06/17 9824: General Information and HPI MD Statement: I have seen and personally examined CARLENE BEARD JR and documented this H&P. The patient is a 66 year old M who presented with a patient stated chief complaint of [chills]. Source of Information: patient, old records Exam Limitations: no limitations History of Present Illness: Patient is a 66-year-old male with past medical history significant for COPD, emphysema, hypertension, hypercholesterolemia, diabetes, diabetic neuropathy, history of melanoma status post surgical removal, bilateral lower extremity edema, recently discharged from [facility] in April 2017 initially admitted to ICU, treated for Streptococcus pneumonia with levofloxacin presenting this admission with chief complaint of fever and chills. Patient reports that at approximately 5 PM on day of admission he started having chills and shakes. Reports that at the time he was in his truck outside his house. Patient reports that when he went inside the shaking became worse. Patient also reports that he had dizziness and felt his heart racing. Reports subjective fevers. Patient denies any cough, shortness of breath, chest pain, abdominal pain, nausea/vomiting, diarrhea/constipation, dysuria/hematuria. Per ED notes patient had initially reported that he was taking drugs however during this interview he denies any drug use. Patient states he lives with his mom and that he has not been around anyone who has been sick lately. Patient denies any recent travel outside of [place], denies any tick or bug bites. Patient was recently discharged from [facility] on 04/23/2017. Patient was found to have a right upper lobe consolidation and was treated for strep pneumonia with a 7 day course of levofloxacin. Patient states that he was initially having shortness of breath following this discharge and was seen by his health nurse, Dr. Roper. At that time patient was given an inhaler which she reports he has been taking every day. Patient reports that over the past 2 weeks he has had no shortness of breath. Of note patient also has a left lower lobe nodule which was seen on CT during previous admission. The nodule increased from 0.8 mm to 1.6 cm. Patient reports that he quit smoking 10 years prior. Past medical history: As above Past surgical history: Surgical resection of melanoma on shoulder and back, left hip replacement Social history: Patient lives with his mother, former smoker, quit 10 years ago, previously smoking 2-4 packs per day for 30 years, reports occasional alcohol use, denies any illicit/IV drug use, occupation: [employer], now retired, no pets , no recent travel, no sick contacts, no tick/bug bites Patient's PCP: Naeem Laura MD Social Services Manager: Dr. Lopez. Patient reports he was seen after discharge and reports no changes in medications. Faith Doctor: Dr. Roper Oncologist: Dr. Escoto - monica for melanoma, patient reports no changes. Medications: Amlodipine 10 mg, aspirin 81 mg, celecoxib 400 mg, Trulicity, Jardiance 10 mg, Zetia 10 mg, furosemide 20 mg, gabapentin 300 mg 3 times a day, she Lantus 40 units qpm, losartan/hydrochlorothiazide 35290 0.5 mg, metformin 1000 mg twice a day Allergies: Penicillin (hives) latex Allergies/Medications Allergies: Coded Allergies: Penicillins (Severe, HIVES 09/15/16) latex (PEELS SKIN OFF PER PT 04/20/17) Home Med list Albuterol Sulfate (Proair Hfa) 90 MCG HFA.AER.AD 2 PUF INH Q4-6 PRN PRN lung health (Reported) Amlodipine Besylate 10 MG TABLET 1 TAB PO DAILY BP (Reported) Aspirin (Ecotrin*) 81 MG TABLET.DR 1 TAB PO DAILY HEART/BLOOD (Reported) Celecoxib 200 MG CAPSULE 2 CAP PO QAM PAIN/INFLAMMATION (Reported) Cyanocobalamin (Vitamin B-12) (Vitamin B-12) 500 MCG TABLET 1 TAB PO DAILY SUPPLEMENT (Reported) Dulaglutide (Trulicity) (Unknown Strength) PEN.INJCTR (Unknown Dose) SC QSAT DM (Reported) Empagliflozin (Jardiance) 10 MG TABLET 1 TAB PO DAILY DIABETES (Reported) Ezetimibe (Zetia) 10 MG TABLET 1 TAB PO DAILY CHOLESTEROL (Reported) Furosemide 20 MG TABLET 1 TAB PO DAILY WATER RETENTION (Reported) Gabapentin 300 MG CAPSULE 1 CAP PO TID PAIN (Reported) Hydrocortisone 2.5 % CREAM..G. 1 TASHA TOP PRN SKIN - NOSE (Reported) apply to affected area(s) Insulin Glargine,Hum.rec.anlog (Lantus Solostar) 100 UNIT/ML (3 ML) INSULN.PEN 40 UNIT SC QPM DIABETES (Reported) Ketoconazole (Nizoral) 2 % SHAMPOO 1 TASHA TOP ONCE A WEEK SCALP (Reported) Ketoconazole 2 % CREAM..G. 1 TASHA TOP PRN SKIN (Reported) apply to affected area(s) Losartan/Hydrochlorothiazide (Losartan-Hctz 100-12.5 MG Tab) 100 MG-12.5 MG TABLET 1 TAB PO DAILY HEART (Reported) Metformin HCl 1,000 MG TABLET 1 TAB PO BID DIABETES (Reported) Moxifloxacin HCl (Avelox) 400 MG TABLET 1 TAB PO DAILY lung infection [place]-3S/Dha/Epa/Fish Oil (Fish Oil 1,000 MG Softgel) 300 MG (250 MG-50 MG)-1, 000 MG CAPSULE 1 SGL PO BID SUPPLEMENT (Reported) Pyridoxine HCl (Vitamin B-6) 50 MG TABLET 1 TAB PO DAILY SUPPLEMENT (Reported ) Tiotropium [place] (Spiriva) 18 MCG CAP.W.DEV 1 CAP INH DAILY LUNG HEALTH ( Reported) NOT GIVEN AT HOSPITAL Past History Travel History Traveled to [place] past 21 day No Medical History Neurological: NONE, peripheral neuropathy EENT: NONE Cardiovascular: hypertension, hyperlipidemia Respiratory: NONE Gastrointestinal: GERD Hepatic: NONE Renal: NONE Musculoskeletal: NONE Psychiatric: NONE Endocrine: diabetes Blood Disorders: NONE Cancer(s): melanoma 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 Ambulation: independent IADLs Independent: shopping, housework, finances, food prep, telephone, transportation , medication admin. Review of Systems Review of Systems Constitutional: Reports: see HPI. Cardiovascular: Reports: see HPI. Respiratory: Reports: see HPI. GI: Reports: no symptoms. Genitourinary: Reports: no symptoms. Musculoskeletal: Reports: no symptoms. Skin: Reports: no symptoms. Neurological/Psychological: Reports: confusion. Hematologic/Endocrine: Reports: no symptoms. Immunologic/Allergic: Reports: no symptoms. Exam & Diagnostic Data Last 24 Hrs of Vital Signs/I&O Vital Signs Date Time Temp Pulse Resp B/P B/P Pulse O2 O2 Flow FiO2 Mean Ox Delivery Rate 06/06 2310 99.8 100 20 132/82 94 Room Air 06/06 2223 98.8 97 20 125/61 95 Room Air 06/06 2213 Room Air 06/06 2113 101.8 06/06 2054 101.8 106 20 144/63 96 Room Air 06/06 1824 100.1 120 18 129/88 94 Room Air Physical Exam General Appearance Alert, Oriented X3, Cooperative, No Acute Distress Skin No Rashes, No Breakdown, No Significant Lesion Skin Temp/Moisture Exam: Warm/Dry Sepsis Skin Exam (color): Normal for Ethnicity HEENT Atraumatic, PERRLA, EOMI, Mucous Membr. moist/pink Neck Supple, No JVD, No thryomegaly Lymphatic Cervical nl Cardiovascular Normal S1, Normal S2, No Murmurs, tachycardic Lungs Clear to Auscultation, Normal Air Movement Abdomen Normal Bowel Sounds, Soft, No Tenderness Neurological Normal Speech, Strength at 5/5 X4 Ext, Normal Tone, Sensation Intact, Cranial Nerves 3-12 NL Extremities No Clubbing, No Cyanosis, Normal Pulses, No Tenderness/Swelling, 1+ bilateral lower extremity edema, chronic venous stasis changes Vascular Normal Pulses, Pulses Symmetrical Last 24 Hrs of Labs/Chris: Laboratory Tests 06/06/172125: Lactic Acid Cancelled 06/06/17 2000: Urine Opiates Screen < 100, Methadone Screen < 40, Barbiturate Screen < 60, Ur Phencyclidine Scrn < 6.00, Amphetamines Screen < 100, U Benzodiazepines Scrn < 85, Urine Cocaine Screen < 50, Urine Cannabis Screen < 5.00, Urine Color YEL, Urine Clarity CLEAR, Urine pH 6.5, Ur Specific [place] 1.020, Urine Protein 100 H, Urine Ketones NEG, Urine Nitrite NEG, Urine Bilirubin NEG, Urine Urobilinogen 0.2, Ur Leukocyte Esterase NEG, Ur Microscopic SEDIMENT EXAMINED, Urine RBC 5-10 H, Urine WBC RARE, Ur Epithelial Cells RARE, Urine Mucus RARE, Urine Hemoglobin SMALL H, Urine Glucose >=1000 H 06/06/17 1845: Anion Gap 11, Estimated GFR > 60, BUN/Creatinine Ratio 31.1 H, Glucose 202 H, Lactic Acid 1.8, Calcium 9.2, Total Bilirubin 0.6, AST 25, ALT 35, Alkaline Phosphatase 93, Troponin I < 0.01, Fmr-X-Yawhylxndyj Pept 118, Total Protein 6.5 , Albumin 3.8, Globulin 2.7, Albumin/Globulin Ratio 1.4, CBC w Diff MAN DIFF ORDERED, RBC 5.21, MCV 83.0, MCH 28.1, MCHC 33.9, RDW 15.3 H, MPV 9.1, Gran % 88.8 H, Lymphocytes % 3.7 L, Monocytes % 7.0, Eosinophils % 0.2, Basophils % 0.3, Absolute Granulocytes 12.3 H, Segmented Neutrophils 86 H, Band Neutrophils 8 H, Absolute Lymphocytes 0.5 L, Lymphocytes 1 L, Monocytes 5, Absolute Monocytes 1.0 H, Absolute Eosinophils 0, Absolute Basophils 0, Platelet Estimate ADEQUATE, Poikilocytosis 1+, Anisocytosis 1+, Stomatocytes 2+, Serum Alcohol < 10.0 Microbiology 06/06 2024 BLOOD: Blood Culture - RECD 06/07 2019 BLOOD: Blood Culture - RECD 06/07 1999 URINE ROUT: Legionella Antigen - COMP 06/07 1999 URINE ROUT: Streptococcus pneumoniae Antigen (M - COMP 06/06 1834 NASOPHARYN: Influenza Virus A & B Rapid Smear - COMP Diagnostic Data EKG Results Sinus Tachycardia HR: 120, no ST or Twave changes, QTc: 413 CXR Results Essentially complete interval resolution of previously noted dense right lung consolidation. New diffuse reticular opacities could reflect an atypical pneumonia versus interstitial pulmonary edema. Assessment/Plan Assessment: Patient is a 66-year-old male with past medical history significant for COPD, emphysema, hypertension, hypercholesterolemia, diabetes, diabetic neuropathy, history of melanoma status post surgical removal, bilateral lower extremity edema, recently discharged from [facility] in April 2017 initially admitted to ICU, treated for Streptococcus pneumonia with levofloxacin presenting this admission with chief complaint of fever and chills. Assessment: Patient presented with fever w/Tmax of 101.8, chills and tachycardia. Patient's labs significant for leukocytosis with left shift and bandemia. Patient's rapid flu was negative. CXR showing diffiuse reticulonodular opacities. Patient's findings are consistent with sepsis secondary to atypical pneumonia. Given patient's recent hospitalization in April when he was treated for Strep pneumonia we will cover him with levofloxacin for broader coverage. Patient has already received IV Ceftriaxone, IV Azithromycin, IV NS bolus x 1, and IV Tylenol x 1 in the ED. Severity of patient's pneumonia based on CURB-65 is low therefore will admit to general medicine for management of the followin. Atypical Pneumonia 2. Sinus tachycardia 2/2 to above 3. Chronic conditions: DM, HTN, COPD, Diabetic neuropathy, chronic bilateral lower extremity edema, history of LLL nodule (1.6cm) Plan: * admit to general medicine floor * monitor vitals qshift * trend WBC * follow blood cultures * follow up urine strep and legionella * TRC with DuoNeb as needed * levofloxacin IV 750mg q24h * gentle IV hydration * accuchecks TIDAC/qhs * Novolog SS, Levemir 20 units BID * Oral hypoglycemic agents held * Lasix held today * Continue amlodipine, aspirin, zetia, gabapentin, losartan, hydrochlorothiazide DVT PPx: lovenox Diet: Consistent Carbohydrate Code: Full Code As Ranked By This Provider Problem List: 1. Pneumonia Core Measures/Misc (10/29) Acute Coronary Syndrome ACS Diagnosis: No Congestive Heart Failure Congestive Heart Failure Diagnosis No Cerebrovascular Accident CVA/TIA Diagnosis: No VTE (View Protocol) VTE Risk Factors Age>40 No Mechanical VTE Prophylaxis d/t N/A MechProphylax Ordered No VTE Pharm Prophylaxis d/t NA PharmProphylax ordered Sepsis (View protocol) Sepsis Present: Yes Nickie Edwards 06/06/17 2330: Attending MD Review Statement Attending Statement Attending MD Statement: examined this patient, discuss w/resident/PA/ELECTRIC MOTOR REBUILDER, agreed w/resident/PA/ELECTRIC MOTOR REBUILDER, reviewed EMR data (avail), reviewed images, amended to note Attending Assessment/Plan: CC: Fever and chills PMH: DM, HTN, diabetic neuropathy, melanoma on back S/P resection, asthma/COPD, ex-smoker Patient came to ER for 1 day history of fever and chills, generalized malaise and body ache that started approximately 5 PM, and he came back home and was resting. He also noticed lightheadedness but did not pass out. He denies any chest pain, chest tightness, palpitations, pleuritic nature of chest pain, URI symptoms, skin rashes or discoloration, urinary symptoms, abdominal pain, diarrhea or vomiting. Other than the fever and chills he has mild respiratory difficulty with shortness of breath but complete ROS unremarkable. No sick contacts. Recent hospitalization and April 20 for pneumonia, completed antibiotics after that. He has chronic lower extremity swelling denies any recent changes. He has mild exertional dyspnea at baseline. Vitals: T max 101.8, pulse 120, RR 18, blood pressure 129/88, saturating 94% on room air On exam: A O 3, cooperative, mild respiratory distress, face flushed, neck supple, JVD difficult to assess, cervical lymphadenopathy present, mucosa moist, no focal neurological deficit, +2 leg edema, scabs on bilateral lower extremity, anterior aspect of right lower extremity and posterior aspect of left lower extremity, mild skin changes but no evidence of cellulitis, infection or abscess. Scar of melanoma resection on back. CVS: S1-S2, RRR. RS: Clear to auscultate bilaterally, no crackles or wheezing. Abdomen: Obese, Soft, NT, ND, bowel sounds present. CXR: Essentially complete interval resolution of previously noted dense right lung consolidation. New diffuse reticular opacities could reflect an atypical pneumonia versus interstitial pulmonary edema. Assessment and plan 66-year-old male with multiple comorbidities as mentioned above presented in ER for 1 day history of chills, shaking, dizziness, palpitations and mild respiratory difficulty started approximately 5 PM. He denies any sick contacts, recent travels, vomiting or choking, any insect or animal bites, skin rashes, urinary symptoms, cough or expectoration, URI symptoms. He is found to have significant fever of 101.8 in ER, was tachycardic and appeared in mild respiratory distress with tachypnea but chest auscultation was unremarkable. He has bilateral lower extremity edema but no obvious joint JVD noted. WBC elevated with left shift and 8 bands, lactate 1.8 and chest x-ray suggestive of bilateral infiltrates indicating atypical pneumonia. Even though x-ray as a differential of interstitial pulmonary edema it appears less likely, I reviewed the film and auscultation does not reveal crackles. We will obtain proBNP to exclude it completely. With his recent hospitalization for strep pneumonia, healthcare associated pneumonia as possibility. He was treated with vancomycin 1 dose, ceftriaxone and azithromycin for 4 days followed by 7 days of levofloxacin outpatient. Given his atypical presentation we will continue Moxifloxacin at this point. If persistently febrile or WBC, we can broaden coverage to vancomycin and ceftaz. + Atypical pneumonia + History of DM, HTN, neuropathy, COPD - Admit to general medicine - IV Moxifloxacin - TRC nebulization with albuterol and ipratropium scheduled and when necessary - Legionella antigen - Continue rest of the home medications - Adequate pain control - DVT prophylaxis - Check proBNP - Gentle hydration if proBNP normal - Check influenza Jc Mendes 06/06/17 4572: Resident Review Statement Resident Statement: examined this patient, discussed with qa intern, agreed with qa intern, reviewed EMR data (avail), discussed with nursing, discussed with case mgmt, reviewed images, amended to note Other Findings: This is a 66-year-old male with medical history significant for COPD not on home oxygen, emphysema, hypertension, hyperlipidemia, insulin-dependent diabetes mellitus, diabetic neuropathy, history of melanoma status post surgical removal , bilateral lower extremity edema, recently discharged from [facility] in April 2017 initially admitted to ICU, treated for Streptococcus pneumonia with levofloxacin. He is presenting this time to the emergency department with chief complaint of fever and chills that started around 5 PM today. Patient also reports that he had dizziness and felt his heart racing. Patient denies any cough, shortness of breath, chest pain, abdominal pain, nausea/vomiting, diarrhea/constipation, dysuria/hematuria. In the emergency department patient received 1 L of IV fluid bolus, started on IV ceftriaxone and azithromycin after obtaining blood culture, rapid flu swab came back negative. The chest x-ray suggest atypical pneumonia versus interstitial edema, the patient has a leukocytosis with positive band. Physical examination, lab and imaging as above Problem list: -CAP(atypical), least likely HCAP giving the most recent blood culture. -Leukocytosis with bandemia due to above -Sinus tachycardia due to above. Plan: - Admit to general medicine - Vitals every shift - Change antibiotic to IV Levaquin 750 mg daily - Obtain sputum culture, strep and Legionella urine antigen, follow blood culture - Gentle IV fluid hydration after obtaining proBNP - Obtain EKG in a.m. - TRC nebulization - Accu-Chek, insulin sliding scale, Levemir 20 twice a day - Carbohydrate consistent diet - Hold off his oral antidiabetic, Lasix otherwise Continue rest of the home medications - Adequate pain control - DVT prophylaxis: Lovenox - Full code
[2017-06-06 23:10] VITALS: BP 132/82
--- NOTE | 2017-06-06 23:31 | Admission Certification ---
Admission Certification Certification Statement - As attending physician, I certify that at the time of - admission, based on clinical presentation, severity of - symptoms, need for further diagnostic testing and - therapeutic interventions, and risk of adverse outcomes - without in-hospital treatment, in my clinical assessment, - this patient requires an acute hospital stay for a minimum - of two nights or longer. I have also considered psychsocial - factors such as support system, advanced age, financial - issues, cognitive issues, and failed out-patient treatments, - past re-admission history, safety of patient, and lack of - compliance as applicable. Specific rationale supporting this admission is: Pneumonia
[2017-06-07] VITALS: BP 132/82
[2017-06-07 02:00] VITALS: BP 132/82
[2017-06-07 04:00] VITALS: BP 132/76
[2017-06-07 06:42] VITALS: BP 150/70
--- NOTE | 2017-06-07 07:04 | PN- Housestaff ---
Dany Gill MD,[facility] 06/07/17 0703: Subjective Follow-up For: Pneumonia Subjective: Patient visited today, was lying in bed comfortably in no acute distress, was alert and oriented. No fever or chills, improved shortness of breathing, no chest pain, no other events. reported low quality of sleep last night. Review of Systems Constitutional: Reports: see HPI. Objective Last 24 Hrs of Vital Signs/I&O Vital Signs Date Time Temp Pulse Resp B/P B/P Pulse O2 O2 Flow FiO2 Mean Ox Delivery Rate 06/07 1600 Room Air 06/07 1316 98.2 96 20 158/90 93 Room Air 06/07 0935 90 150/70 06/07 0934 90 150/70 06/07 0925 93 Room Air 06/07 0920 Room Air 06/07 0800 Room Air 06/07 0642 99.5 90 22 150/70 92 Room Air 06/07 0400 98.2 98 20 132/76 06/07 0200 99.8 100 20 132/82 06/07 0000 99.8 100 20 132/82 06/06 2310 99.8 100 20 132/82 94 Room Air 06/06 2300 Room Air 06/06 2223 98.8 97 20 125/61 95 Room Air 06/06 2213 Room Air 06/06 2113 101.8 06/06 2054 101.8 106 20 144/63 96 Room Air 06/06 1824 100.1 120 18 129/88 94 Room Air Intake & Output 06/07 1600 06/07 0800 06/07 0000 Intake Total 480 1280 2250 Output Total Balance 480 1280 2250 Intake, IV 800 2250 Intake, Oral 480 480 Patient 250 lb Weight Weight Bed scale Measurement Method Physical Exam General Appearance: Alert, Oriented X3, Cooperative, No Acute Distress Skin Temp/Moisture Exam: Warm/Dry Sepsis Skin Exam (color): Normal for Ethnicity HEENT: Atraumatic Cardiovascular: Normal S1, Normal S2 Lungs: Normal Air Movement, clear Abdomen: Soft, No Tenderness Neurological: Normal Speech, Strength at 5/5 X4 Ext Extremities: No Edema Current Medications: Current Medications Sig/Mirna Start time Last Medication Dose Route Stop Time Status Admin Acetaminophen 650 MG Q6P PRN 06/06 2199 AC 06/07 PO 1527 Acetaminophen 1,000 MG Q6P PRN 04/25 2200 AC IV Acetaminophen 0 .STK-MED ONE 06/07 2107 DC IV Acetaminophen 1,000 MG ONCE ONE 06/06 191 DC 06/06 N/A 1 UNIT IV 06/06 Albuterol Sulfate 3 ML BID 06/07 2100 AC 06/07 INH 0919 Albuterol Sulfate 3 ML BID 06/07 2100 DC INH Amlodipine Besylate 10 MG DAILY 06/07 09 AC 06/07 PO 0934 Aspirin Buffered 81 MG DAILY 06/07 09 AC 06/07 PO 0934 Azithromycin 500 MG ONCE ONE 06/06 1929 DC 06/06 Sodium Chloride 250 ML IV 06/06 Ceftriaxone Sodium 0 .STK-MED ONE 06/07 2103 DC .ROUTE Ceftriaxone Sodium 1,000 MG ONCE ONE 06/06 1929 DC 06/06 IV 06/06 Enoxaparin Sodium 40 MG DAILY 06/07 09 AC 06/07 SC 0936 Ezetimibe 10 MG DAILY 06/07 09 AC 06/07 PO 0934 Gabapentin 300 MG TID 06/07 09 AC 06/07 PO 1415 Insulin Aspart 0 AT BEDTIME 06/07 2100 AC SC Insulin Aspart 0 TIDAC 06/07 08 AC 06/07 SC 1415 Insulin Detemir 20 UNITS BID 06/060 AC 06/07 SC 0935 Insulin Detemir 35 UNITS QPM 06/06 2199 DC SC Ipratropium [place] 2.5 ML BID 06/07 2100 AC 06/07 INH 0924 Ketorolac 30 MG ONCE ONE 06/06 2100 DC Tromethamine IV 06/06 2100 Losartan Potassium 100 MG DAILY 06/07 09 AC 06/07 PO 0935 Moxifloxacin HCl 400 MG Q24H 06/07 2200 AC N/A 1 UNIT IV Moxifloxacin HCl 400 MG DAILY 06/07 0200 DC 06/07 N/A 1 UNIT IV 0234 Moxifloxacin HCl 400 MG DAILY 06/07 0145 CAN IV Non-Formulary 0 SEE ADMIN CRITERIA 06/06 2345 CAN Medication ANY Oxycodone/ 2 TAB Q6P PRN 06/06 2199 AC Acetaminophen PO Patient Medication 1 ED ONE ONE 06/07 1545 DC Teaching ED 06/07 1546 Sodium Chloride 1,000 ML .Q10H 06/06 2145 AC 06/07 IV 1045 Sodium Chloride 1,000 ML BOLUS ONE 06/06 2099 DC 06/06 IV 06/06 Sodium Chloride 1,000 ML BOLUS ONE 06/06 1914 DC IV 06/06 2013 Sodium Chloride 1,000 ML BOLUS ONE 06/06 1914 DC 06/06 IV 06/06 Last 24 Hrs of Lab/Chris Results Last 24 Hrs of Labs/Mics: Laboratory Tests 06/07/17 0735: Anion Gap 7, Estimated GFR > 60, BUN/Creatinine Ratio 24.4, CBC w Diff NO MAN DIFF REQ, RBC 4.57 L, MCV 82.9, MCH 28.1, MCHC 33.9, RDW 15.5 H, MPV 9.5, Gran % 85.3 H, Lymphocytes % 5.7 L, Monocytes % 9.0, Eosinophils % 0, Basophils % 0 , Absolute Granulocytes 7.2 H, Absolute Lymphocytes 0.5 L, Absolute Monocytes 0.8 H, Absolute Eosinophils 0, Absolute Basophils 0 06/06/172125: Lactic Acid Cancelled 06/06/17 2000: Urine Opiates Screen < 100, Methadone Screen < 40, Barbiturate Screen < 60, Ur Phencyclidine Scrn < 6.00, Amphetamines Screen < 100, U Benzodiazepines Scrn < 85, Urine Cocaine Screen < 50, Urine Cannabis Screen < 5.00, Urine Color YEL, Urine Clarity CLEAR, Urine pH 6.5, Ur Specific [place] 1.020, Urine Protein 100 H, Urine Ketones NEG, Urine Nitrite NEG, Urine Bilirubin NEG, Urine Urobilinogen 0.2, Ur Leukocyte Esterase NEG, Ur Microscopic SEDIMENT EXAMINED, Urine RBC 5-10 H, Urine WBC RARE, Ur Epithelial Cells RARE, Urine Mucus RARE, Urine Hemoglobin SMALL H, Urine Glucose >=1000 H 06/06/17 1845: Anion Gap 11, Estimated GFR > 60, BUN/Creatinine Ratio 31.1 H, Glucose 202 H, Lactic Acid 1.8, Calcium 9.2, Total Bilirubin 0.6, AST 25, ALT 35, Alkaline Phosphatase 93, Troponin I < 0.01, Ehh-G-Rvzfzinnbyj Pept 118, Total Protein 6.5 , Albumin 3.8, Globulin 2.7, Albumin/Globulin Ratio 1.4, CBC w Diff MAN DIFF ORDERED, RBC 5.21, MCV 83.0, MCH 28.1, MCHC 33.9, RDW 15.3 H, MPV 9.1, Gran % 88.8 H, Lymphocytes % 3.7 L, Monocytes % 7.0, Eosinophils % 0.2, Basophils % 0.3, Absolute Granulocytes 12.3 H, Segmented Neutrophils 86 H, Band Neutrophils 8 H, Absolute Lymphocytes 0.5 L, Lymphocytes 1 L, Monocytes 5, Absolute Monocytes 1.0 H, Absolute Eosinophils 0, Absolute Basophils 0, Platelet Estimate ADEQUATE, Poikilocytosis 1+, Anisocytosis 1+, Stomatocytes 2+, Serum Alcohol < 10.0 Microbiology 06/06 2024 BLOOD: Blood Culture - RES 06/07 2019 BLOOD: Blood Culture - RES 06/07 1999 URINE ROUT: Legionella Antigen - COMP 06/07 1999 URINE ROUT: Streptococcus pneumoniae Antigen (M - COMP 06/06 1834 NASOPHARYN: Influenza Virus A & B Rapid Smear - COMP Assessment/Plan Assessment: Patient is a 66-year-old male with past medical history significant for COPD, emphysema, hypertension, hypercholesterolemia, diabetes, diabetic neuropathy, history of melanoma status post surgical removal, bilateral lower extremity edema, recently discharged from [facility] in April 2017 initially admitted to ICU, treated for Streptococcus pneumonia with levofloxacin presenting this admission with chief complaint of fever and chills. Assessment: Patient presented with fever w/Tmax of 101.8, chills and tachycardia. Patient's labs significant for leukocytosis with left shift and bandemia. Patient's rapid flu was negative. CXR showing diffiuse reticulonodular opacities. Patient's findings are consistent with sepsis secondary to atypical pneumonia. Given patient's recent hospitalization in April when he was treated for Strep pneumonia we will cover him with levofloxacin for broader coverage. Patient has already received IV Ceftriaxone, IV Azithromycin, IV NS bolus x 1, and IV Tylenol x 1 in the ED. Severity of patient's pneumonia based on CURB-65 is low therefore will admit to general medicine for management of the followin. Atypical Pneumonia 2. Sinus tachycardia 2/2 to above 3. Chronic conditions: DM, HTN, COPD, Diabetic neuropathy, chronic bilateral lower extremity edema, history of LLL nodule (1.6cm) Plan: * admit to general medicine floor * monitor vitals qshift * trend WBC * follow blood cultures * TRC with DuoNeb as needed * continue levofloxacin IV 750mg q24h * gentle IV hydration * accuchecks TIDAC/qhs * Novolog SS, Levemir 20 units BID * Oral hypoglycemic agents held * Lasix held today * Continue amlodipine, aspirin, zetia, gabapentin, losartan, hydrochlorothiazide * Chest Ct done today * follow pulm DVT PPx: lovenox Diet: Consistent Carbohydrate Code: Full Code Problem List: 1. Pneumonia Pain Ratin Pain Location: None Pain Goal: Pain 4 or less Pain Plan: Continue current plan Tomorrow's Labs & Rationales: CBC BEP Marixa JUSTIN,Ki 06/07/17 1230: Attending MD Review Statement Attending Statement Attending MD Statement: examined this patient, discuss w/resident/PA/CARPENTER INSPECTOR, agreed w/resident/PA/CARPENTER INSPECTOR, reviewed EMR data (avail), discussed with nursing, discussed with case mgmt, amended to note Attending Assessment/Plan: Patient seen and examined. Recently admitted on treatment for atypical pneumonia. he presents again about a month later with clear evidence of pneumonia. The consolidation noted on previous x-ray is reported to have resolved and he has new consolidation this time around. When questioned patient does admit to some difficulty swallowing solids or liquids on occasion. This raises concern for aspiration and a swallow evaluation is scheduled for today. During last hospitalization pulmonary nodule that was expanding in size was noted. This was noted on CT imaging and not on the chest x-ray. Chest x-ray this time around she makes no mention of the infiltrate. Patient denies any weight loss. Denies any hemoptysis. On examination he has adequate entry bilaterally and lungs are clear to auscultation. No palpable cervical or supraclavicular adenopathy. Legionella and streptococcal screen negative. Problems: 1. Right lung pneumonia; with concern for aspiration pneumonia versus atypical pneumonia 2. Left lower lobe pulmonary mass now 1.6 cm in size. 3. COPD 4. Diabetes with complications of neuropathy. Recommendations: -Swallow evaluation -Noncontrast CT chest for better evaluation of pulmonary process. -Antibiotic therapy with IV Avelox. (Patient has penicillin allergy.) -Continue bronchodilators. No evidence of bronchospasm at present. -Blood cultures.
[2017-06-07 08:28] LABS: ABSOLUTE BASOPHIL COUNT 0 /CUMM (0.0-0.2); ABSOLUTE EOSINOPHIL COUNT 0 /CUMM (0.0-0.7); ABSOLUTE GRANULOCYTE CT 7.2 /CUMM (1.4-6.5); ABSOLUTE LYMPH COUNT 0.5 /CUMM (1.2-3.4); ABSOLUTE MONOCYTE COUNT 0.8 /CUMM (0.10-0.60); BASOPHIL % 0 % (0.0-2.0); EOSINOPHIL % 0 % (0-5); MEAN CORPUSCULAR HGB 28.1 PG (27.0-31.0); MEAN CORPUSCULAR HGB CONC 33.9 G/DL (33.0-37.0); MEAN CORPUSCULAR VOLUME 82.9 FL (80.0-94.0); MEAN PLATELET VOLUME 9.5 FL (7.4-10.4); RBC DISTRIBUTION WIDTH 15.5 % (11.5-14.5); RED BLOOD CELL CT 4.57 /CUMM (4.70-6.10); WHITE BLOOD CELL COUNT 8.4 /CUMM (4.8-10.8)
[2017-06-07 09:17] LABS: HEMATOCRIT 37.9 % (42-52); PLATELET COUNT 253 /CUMM (130-400)
[2017-06-07 09:18] LABS: GRANULOCYTE % 85.3 % (42.2-75.2)
--- NOTE | 2017-06-07 11:22 | Cons- Pulmonary ---
General Information and HPI Consulting Request Date of Consult: 06/07/17 Requested By: Dr. Edwards Reason for Consult: dyspnea/pneumonia Source of Information: patient Exam Limitations: no limitations History of Present Illness: 66 year old man. Consultation for dyspnea and pneumonia. Recently seen in office after follow up for S. pneumo pneumonia. Hx of COPD - he has historically declined inhalers, however recently given Trelegy samples for improvement of symptoms and a post infectious reactive airways disease. He also has a history of multiple lung nodules with an outpatient plan for follow up in June. He had an increasing LLL mass up to 1.6cm. For his recent pneumonia he completed therapy with Levaquin (PCN allergy). At home has had +chills, +rigors, +palpitations, recently worked outside [employer]. Exertional dyspnea. No cough, no n/v/d/c, no cp. CXR 06/06/17 resolution of right lung consolidation reticular opacifications that are diffuse Fever up to 101.8. WBC 13.9 -> 8.4 BNP 118 Allergies/Medications Allergies: Coded Allergies: Penicillins (Severe, HIVES 09/15/16) latex (PEELS SKIN OFF PER PT 04/20/17) Home Med List: Amlodipine Besylate 10 MG TABLET 1 TAB PO DAILY BP (Reported) Aspirin (Ecotrin*) 81 MG TABLET.DR 1 TAB PO DAILY HEART/BLOOD (Reported) Celecoxib 200 MG CAPSULE 2 CAP PO QAM PAIN/INFLAMMATION (Reported) Cyanocobalamin (Vitamin B-12) (Vitamin B-12) 500 MCG TABLET 1 TAB PO DAILY SUPPLEMENT (Reported) Dulaglutide (Trulicity) (Unknown Strength) PEN.INJCTR (Unknown Dose) SC QSAT DM (Reported) Empagliflozin (Jardiance) 10 MG TABLET 1 TAB PO DAILY DIABETES (Reported) Ezetimibe (Zetia) 10 MG TABLET 1 TAB PO DAILY CHOLESTEROL (Reported) Furosemide 20 MG TABLET 1 TAB PO DAILY WATER RETENTION (Reported) Gabapentin 300 MG CAPSULE 1 CAP PO TID PAIN (Reported) Hydrocortisone 2.5 % CREAM..G. 1 TASHA TOP PRN SKIN - NOSE (Reported) apply to affected area(s) Insulin Glargine,Hum.rec.anlog (Lantus Solostar) 100 UNIT/ML (3 ML) INSULN.PEN 40 UNIT SC QPM DIABETES (Reported) Ketoconazole (Nizoral) 2 % SHAMPOO 1 TASHA TOP ONCE A WEEK SCALP (Reported) Ketoconazole 2 % CREAM..G. 1 TASHA TOP PRN SKIN (Reported) apply to affected area(s) Losartan/Hydrochlorothiazide (Losartan-Hctz 100-12.5 MG Tab) 100 MG-12.5 MG TABLET 1 TAB PO DAILY HEART (Reported) Metformin HCl 1,000 MG TABLET 1 TAB PO BID DIABETES (Reported) [place]-3S/Dha/Epa/Fish Oil (Fish Oil 1,000 MG Softgel) 300 MG (250 MG-50 MG)-1, 000 MG CAPSULE 1 SGL PO BID SUPPLEMENT (Reported) Pyridoxine HCl (Vitamin B-6) 50 MG TABLET 1 TAB PO DAILY SUPPLEMENT (Reported ) Current Medications: Current Medications Sig/Mirna Start time Last Medication Dose Route Stop Time Status Admin Acetaminophen 650 MG Q6P PRN 06/06 2199 AC PO Acetaminophen 1,000 MG Q6P PRN 06/06 2199 AC IV Acetaminophen 0 .STK-MED ONE 06/07 2107 DC IV Acetaminophen 1,000 MG ONCE ONE 06/06 1914 DC 06/06 N/A 1 UNIT IV 06/06 Albuterol Sulfate 3 ML BID 06/07 2099 AC 06/07 INH 0919 Albuterol Sulfate 3 ML BID 06/07 2100 DC INH Amlodipine Besylate 10 MG DAILY 06/07 899 AC 06/07 PO 0934 Aspirin Buffered 81 MG DAILY 06/07 899 AC 06/07 PO 0934 Azithromycin 500 MG ONCE ONE 06/06 1929 DC 06/06 Sodium Chloride 250 ML IV 06/06 Ceftriaxone Sodium 0 .STK-MED ONE 06/07 2103 DC .ROUTE Ceftriaxone Sodium 1,000 MG ONCE ONE 06/06 1929 DC 06/06 IV 06/06 Enoxaparin Sodium 40 MG DAILY 06/07 899 AC 06/07 SC 0936 Ezetimibe 10 MG DAILY 06/07 899 AC 06/07 PO 0934 Gabapentin 300 MG TID 06/07 899 AC 06/07 PO 0934 Insulin Aspart 0 AT BEDTIME 06/07 2100 AC SC Insulin Aspart 0 TIDAC 06/07 0800 AC 06/07 SC 0936 Insulin Detemir 20 UNITS BID 06/06 2230 AC 06/07 SC 0935 Insulin Detemir 35 UNITS QPM 06/06 2199 DC SC Ipratropium [place] 2.5 ML BID 06/07 2099 AC 06/07 INH 0924 Ketorolac 30 MG ONCE ONE 06/06 2099 DC Tromethamine IV 06/06 2100 Losartan Potassium 100 MG DAILY 06/07 0900 AC 06/07 PO 0935 Moxifloxacin HCl 400 MG Q24H 06/07 220 AC N/A 1 UNIT IV Moxifloxacin HCl 400 MG DAILY 06/07 0200 DC 06/07 N/A 1 UNIT IV 0234 Moxifloxacin HCl 400 MG DAILY 06/07 0145 CAN IV Non-Formulary 0 SEE ADMIN CRITERIA 06/06 234 CAN Medication ANY Oxycodone/ 2 TAB Q6P PRN 06/06 2199 AC Acetaminophen PO Sodium Chloride 1,000 ML .Q10H 06/06 214 AC 06/07 IV 1045 Sodium Chloride 1,000 ML BOLUS ONE 06/06 2099 DC 06/06 IV 06/06 2158 2223 Sodium Chloride 1,000 ML BOLUS ONE 06/06 1914 DC IV 06/06 2013 Sodium Chloride 1,000 ML BOLUS ONE 06/06 191 DC 06/06 IV 06/06 Review of Systems Comments 18 pt ros reviewed pertinent positives and negatives are in the HPI, otherwise negative Past History Travel History Traveled to [place] past 21 day No Medical History Blood Transfusion Hx: No Neurological: NONE, peripheral neuropathy EENT: NONE Cardiovascular: hypertension, hyperlipidemia Respiratory: NONE Gastrointestinal: GERD Hepatic: NONE Renal: NONE Musculoskeletal: NONE Psychiatric: NONE Endocrine: diabetes Blood Disorders: NONE 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 Home Services at Home: None Smoking Status: Former Smoker ETOH Use: denies use Functional Ability ADLs Independent: dressing, eating, toileting, bathing. Ambulation: independent IADLs Independent: shopping, housework, finances, food prep, telephone, transportation , medication admin. Exam & Diagnostic Data Last 24 Hrs of Vital Signs/I&O Vital Signs Date Time Temp Pulse Resp B/P B/P Pulse O2 O2 Flow FiO2 Mean Ox Delivery Rate 06/07 0835 90 150/70 06/07 0934 90 150/70 04/26 0925 93 Room Air 06/07 0920 Room Air 06/07 0642 99.5 90 22 150/70 92 Room Air 06/07 0400 98.2 98 20 132/76 06/07 0200 99.8 100 20 132/82 06/07 0000 99.8 100 20 132/82 06/06 2310 99.8 100 20 132/82 94 Room Air 06/06 2300 Room Air 06/06 2223 98.8 97 20 125/61 95 Room Air 06/06 2213 Room Air 06/06 2113 101.8 06/06 2054 101.8 106 20 144/63 96 Room Air 06/06 1824 100.1 120 18 129/88 94 Room Air Intake & Output 06/07 1600 06/07 0800 06/07 0000 Intake Total 1280 2250 Output Total Balance 1280 2250 Intake, IV 800 2250 Intake, Oral 480 Patient 250 lb Weight Weight Bed scale Measurement Method Physical Exam Other Physical Findings: gen awake and alert head/neck - room air cvs s1, s2 lungs bilateral rhonchi abd soft, bs+ ext without edema Last 48 Hrs of Labs/Chris: Laboratory Tests 06/07/17 0735: Anion Gap 7, Estimated GFR > 60, BUN/Creatinine Ratio 24.4, CBC w Diff NO MAN DIFF REQ, RBC 4.57 L, MCV 82.9, MCH 28.1, MCHC 33.9, RDW 15.5 H, MPV 9.5, Gran % 85.3 H, Lymphocytes % 5.7 L, Monocytes % 9.0, Eosinophils % 0, Basophils % 0 , Absolute Granulocytes 7.2 H, Absolute Lymphocytes 0.5 L, Absolute Monocytes 0.8 H, Absolute Eosinophils 0, Absolute Basophils 0 06/06/172125: Lactic Acid Cancelled 06/06/17 2000: Urine Opiates Screen < 100, Methadone Screen < 40, Barbiturate Screen < 60, Ur Phencyclidine Scrn < 6.00, Amphetamines Screen < 100, U Benzodiazepines Scrn < 85, Urine Cocaine Screen < 50, Urine Cannabis Screen < 5.00, Urine Color YEL, Urine Clarity CLEAR, Urine pH 6.5, Ur Specific [place] 1.020, Urine Protein 100 H, Urine Ketones NEG, Urine Nitrite NEG, Urine Bilirubin NEG, Urine Urobilinogen 0.2, Ur Leukocyte Esterase NEG, Ur Microscopic SEDIMENT EXAMINED, Urine RBC 5-10 H, Urine WBC RARE, Ur Epithelial Cells RARE, Urine Mucus RARE, Urine Hemoglobin SMALL H, Urine Glucose >=1000 H 06/06/17 1845: Anion Gap 11, Estimated GFR > 60, BUN/Creatinine Ratio 31.1 H, Glucose 202 H, Lactic Acid 1.8, Calcium 9.2, Total Bilirubin 0.6, AST 25, ALT 35, Alkaline Phosphatase 93, Troponin I < 0.01, Flw-E-Wafsgyrggyb Pept 118, Total Protein 6.5 , Albumin 3.8, Globulin 2.7, Albumin/Globulin Ratio 1.4, CBC w Diff MAN DIFF ORDERED, RBC 5.21, MCV 83.0, MCH 28.1, MCHC 33.9, RDW 15.3 H, MPV 9.1, Gran % 88.8 H, Lymphocytes % 3.7 L, Monocytes % 7.0, Eosinophils % 0.2, Basophils % 0.3, Absolute Granulocytes 12.3 H, Segmented Neutrophils 86 H, Band Neutrophils 8 H, Absolute Lymphocytes 0.5 L, Lymphocytes 1 L, Monocytes 5, Absolute Monocytes 1.0 H, Absolute Eosinophils 0, Absolute Basophils 0, Platelet Estimate ADEQUATE, Poikilocytosis 1+, Anisocytosis 1+, Stomatocytes 2+, Serum Alcohol < 10.0 Microbiology 06/07 1999 URINE ROUT: Legionella Antigen - COMP 06/07 1999 URINE ROUT: Streptococcus pneumoniae Antigen (M - COMP 06/06 1835 NASOPHARYN: Influenza Virus A & B Rapid Smear - COMP Assessment/Plan Impression/Plan: Impression 66 year old man. Consultation for dyspnea and pneumonia. CXR 06/06/17 resolution of right lung consolidation reticular opacifications that are diffuse Fever up to 101.8. WBC 13.9 -> 8.4 BNP 118 * Community acquired pneumonia possibly atypical * Recent wood sawing/chopping - could have an interstitial process of saw dust inhalation Plan -currently on Avelox -would recommend to check a CT chest without contrast -trc/nebs DVT prophylaxis at all times Consult Acknowledgment - Thank you for your consult request.
[2017-06-07 13:16] VITALS: BP 158/90
--- NOTE | 2017-06-07 14:17 | CT SCAN REPORT ---
EXAMINATION: CT CHEST WITHOUT CONTRAST CLINICAL INFORMATION: Shortness of breath. Evaluate for malignancy. COMPARISON: Multiple CT chest most recent prior dated 04/20/2017 TECHNIQUE: Multidetector volumetric CT imaging of the chest was done. Axial MIP volume rendering provided. Sagittal and coronal reformatted images were obtained. DLP: 666.49 mGy-cm FINDINGS: COMPOUNDER: Borderline heart size. Prominence of the interstitial markings. LUNGS: Improved aeration noted at the site of previously seen consolidation right upper and right middle lobes. Residual hazy groundglass reticular changes right upper lobe and right middle lobe. Interval development of subpleural nodular opacity right middle lobe measuring approximately 1 cm. (Series 5 image 302). Adjacent pleural thickening along the minor and major fissure. Subpleural nodule left lower lobe measuring approximately 1.1 x 1 cm demonstrates interval decrease compared to the previous examination. (Series 5 image 246) adjacent linear streaky atelectatic changes. Dependent atelectatic changes bilateral lower lobes. MEDIASTINUM: Atherosclerotic disease with intimal calcification of the aorta and the coronary arteries. Multiple shotty lymph nodes noted in the mediastinum likely representing reactive change. Pocket of fluid adjacent to the ascending aorta likely representing fluid in the pericardial recess. PLEURA: Interval development of right-sided pleural effusion. Minor pleural thickening left posterior base. AXILLA: No lymphadenopathy. UPPER ABDOMEN: No suspicious or acute abnormality. OSSEOUS STRUCTURES degenerative changes of the spine. No acute or suspicious osseous abnormality. Prior healed fracture deformity right posterior rib. IMPRESSION: 1. Interval improvement in previously seen consolidation right upper lobe and portion of the right middle lobe. 2. Residual hazy groundglass reticular changes right upper and right middle lobe. 3. Subpleural irregular 1 cm nodule right middle lobe represents an interval change. Differential possibility includes subpleural scarring. Monitoring with follow-up CT chest recommended. 4. Previously seen subpleural nodule left lower lobe demonstrates slight interval decrease measuring 1.1 x 1 cm compared to 1.6 cm on the prior examination. 5. New small right effusion. 6. Shotty mediastinal lymph nodes. Nodule size > 8 mm in LOW RISK PATIENTS: Follow up CT at around 3, 9, and 24 months, dynamic contrast-enhanced CT, PET, and/or biopsy. Nodule size > 8 mm in HIGH RISK PATIENTS: Same as for low-risk patients.
[2017-06-07 23:03] VITALS: BP 138/72
[2017-06-08 02:00] VITALS: BP 138/72
[2017-06-08 04:00] VITALS: BP 132/72
[2017-06-08 06:00] VITALS: BP 126/74
[2017-06-08 06:43] VITALS: BP 126/74
[2017-06-08] MEDS ORDERED: AVELOX400 M1 PO ×2 (08:09→10:02)
--- NOTE | 2017-06-08 08:15 | Patient Discharge Instructions ---
Discharge Instructions General Discharge Information You were seen/treated for: Pneumonia Special Instructions: Please follow with a history of "discharge. Please follow with you laboratory director within 2 weeks of discharge. Please follow with your PCP/laboratory director for follow up CT at around 3, 9, and 24 m. This is very improtant to prevent serious complications. Please measure your pulse oximetry regularly and use oxygen supplements if needed. Diet Continue normal diet: No Recommended Diet: Diabetic Activity Full Activity/No Limits: No Activity Self Limited: Yes Acute Coronary Syndrome Inclusion Criteria At DC or during hospital stay patient has or had the following: ACS DIAGNOSIS No Discharge Core Measures Meds if any: Prescribed or Continued at Discharge Meds if any: NOT Prescribed or Continued at Discharge Congestive Heart Failure Inclusion Criteria At DC or during hospital stay patient has or had the following: CHF DIAGNOSIS No Discharge Core Measures Meds if any: Prescribed or Continued at Discharge Meds if any: NOT Prescribed or Continued at Discharge Cerebrovascular accident Inclusion Criteria At DC or during hospital stay patient has or had the following: CVA/TIA Diagnosis No Discharge Core Measures Meds if any: Prescribed or Continued at Discharge Meds if any: NOT Prescribed or Continued at Discharge Venous thromboembolism Inclusion Criteria VTE Diagnosis No VTE Type NONE VTE Confirmed by (Test) NONE Discharge Core Measures - Per Current guidelines, there needs to be overlap - treatment for the first 5 days of Warfarin therapy. - If discharged on Warfarin prior to 5 days of - overlap therapy, the patient will need to be - assessed for post discharge needs including - *Post discharge parental anticoagulation - *Warfarin and/or parental anticoagulation education - *Follow up date to check INR post discharge At least 5 days overlap therapy as Inpatient No Meds if any: Prescribed or Continued at Discharge Note: Overlap Therapy is Warfarin and Anticoagulant Meds if any: NOT Prescribed or Continued at Discharge
[2017-06-08 08:21] LABS: ABSOLUTE BASOPHIL COUNT 0 /CUMM (0.0-0.2); ABSOLUTE EOSINOPHIL COUNT 0 /CUMM (0.0-0.7); ABSOLUTE GRANULOCYTE CT 6.5 /CUMM (1.4-6.5); ABSOLUTE MONOCYTE COUNT 1.4 /CUMM (0.10-0.60); BASOPHIL % 0.3 % (0.0-2.0); EOSINOPHIL % 0.1 % (0-5); GRANULOCYTE % 73.4 % (42.2-75.2); HEMATOCRIT 37.3 % (42-52); MEAN CORPUSCULAR HGB CONC 33.5 G/DL (33.0-37.0); MEAN CORPUSCULAR VOLUME 83.8 FL (80.0-94.0); MEAN PLATELET VOLUME 9.9 FL (7.4-10.4); PLATELET COUNT 227 /CUMM (130-400); RED BLOOD CELL CT 4.45 /CUMM (4.70-6.10); WHITE BLOOD CELL COUNT 8.9 /CUMM (4.8-10.8)
--- NOTE | 2017-06-08 08:32 | PN- Housestaff ---
Dany Gill MD,Ami 06/08/17 0832: Subjective Follow-up For: Pneumonia, atypical Subjective: Patient visited today, was lying in bed comfortably in no acute distress, was alert and oriented. No fever or chills, improved shortness of breathing, no chest pain, no other events. Patient seen needed oxygen with ambulation, necessitating home O2 Patient was requesting to be discharged. Patient was planned to be discharged on oral moxifloxacin to complete 7 day course. Patient was planned to be discharged. Review of Systems Constitutional: Reports: see HPI. Objective Last 24 Hrs of Vital Signs/I&O Vital Signs Date Time Temp Pulse Resp B/P B/P Pulse O2 O2 Flow FiO2 Mean Ox Delivery Rate 06/08 1013 93 Room Air 06/08 0851 80 126/74 06/08 0851 80 126/74 06/08 0800 Room Air 06/08 0643 98.6 86 22 126/74 93 Room Air 06/08 0600 98.6 86 20 126/74 06/08 0400 99.5 92 20 132/72 06/08 0200 99.5 92 20 138/72 06/08 0000 Room Air 06/07 2303 99.5 92 20 138/72 90 Room Air 06/07 1815 91 Room Air 06/07 1600 Room Air Intake & Output 06/08 1600 06/08 0800 06/08 0000 Intake Total 1300 1700 Output Total Balance 1300 1700 Intake, IV 800 800 Intake, Oral 500 900 Physical Exam General Appearance: Alert, Oriented X3, Cooperative, No Acute Distress Skin: No Significant Lesion Sepsis Skin Exam (color): Normal for Ethnicity HEENT: Atraumatic, EOMI, Mucous Membr. moist/pink Cardiovascular: Normal S1, Normal S2 Lungs: Normal Air Movement, improved air entry, no wheezing or rhonchi Abdomen: Soft, No Tenderness Extremities: No Edema Current Medications: Current Medications Sig/Mirna Start time Last Medication Dose Route Stop Time Status Admin Acetaminophen 650 MG .STK-MED ONE 06/07 1525 DC PO 06/07 1526 Acetaminophen 650 MG Q6P PRN 06/060 DCD 06/07 PO 1527 Acetaminophen 1,000 MG Q6P PRN 06/06 2200 DCD IV Albuterol Sulfate 3 ML BID 06/07 2100 DCD 06/08 INH 1013 Albuterol Sulfate 3 ML BID 06/07 2100 DC INH Amlodipine Besylate 10 MG DAILY 06/07 09 DCD 06/08 PO 0851 Aspirin Buffered 81 MG DAILY 06/07 09 DCD 06/08 PO 0850 Enoxaparin Sodium 40 MG DAILY 06/07 09 DCD 06/08 SC 0852 Ezetimibe 10 MG DAILY 06/07 09 DCD 06/08 PO 0852 Gabapentin 300 MG TID 06/07 09 DCD 06/08 PO 0850 Insulin Aspart 0 AT BEDTIME 06/07 2100 DCD SC Insulin Aspart 0 TIDAC 06/07 08 DCD 06/07 SC 1724 Insulin Detemir 20 UNITS BID 06/06 2230 DCD 06/08 SC 0854 Ipratropium [place] 2.5 ML BID 06/07 2100 DCD 06/08 INH 1012 Losartan Potassium 100 MG DAILY 06/07 09 DCD 06/08 PO 0851 Moxifloxacin HCl 400 MG 1700 06/08 1700 DCD PO Moxifloxacin HCl 400 MG Q24H 06/07 2200 DC 06/07 N/A 1 UNIT IV 2053 Oxycodone/ 2 TAB Q6P PRN 06/06 2199 DCD Acetaminophen PO Patient Medication 1 ED ONE ONE 06/07 1545 DC 06/07 Teaching ED 06/07 1546 1724 Sodium Chloride 1,000 ML .Q10H 06/06 2145 DC 06/07 IV 2053 Last 24 Hrs of Lab/Chris Results Last 24 Hrs of Labs/Mics: Laboratory Tests 06/08/17 0612: CBC w Diff NO MAN DIFF REQ, RBC 4.45 L, MCV 83.8, MCH 28.0, MCHC 33.5, RDW 15.0 H, MPV 9.9, Gran % 73.4, Lymphocytes % 11.0 L, Monocytes % 15.2 H, Eosinophils % 0.1, Basophils % 0.3, Absolute Granulocytes 6.5, Absolute Lymphocytes 1.0 L, Absolute Monocytes 1.4 H, Absolute Eosinophils 0, Absolute Basophils 0 Assessment/Plan Assessment: Patient is a 66-year-old male presented with fevers chills, and shortness of breathing PMH: COPD, emphysema, hypertension, hypercholesterolemia, diabetes, diabetic neuropathy, history of melanoma status post surgical removal, bilateral lower extremity edema, recently discharged from [facility] in April 2017 initially admitted to ICU, treated for Streptococcus pneumonia with levofloxacin Patient presented with fever w/Tmax of 101.8, chills and tachycardia. Patient's labs significant for leukocytosis with left shift and bandemia. Patient's rapid flu was negative. CXR showing diffiuse reticulonodular opacities. Patient's findings were consistent with sepsis secondary to atypical pneumonia. Given patient's recent hospitalization in April when he was treated for Strep pneumonia patient was treated levofloxacin for broader coverage. Patient received IV Ceftriaxone, IV Azithromycin, IV NS bolus x 1, and IV Tylenol x 1 in the ED. Patient was then transferred to floor for management of atypical pneumonia. 1. Atypical Pneumonia Patient received O2 supplement, IV moxifloxacin was started. With improvement of the condition IV moxifloxacin was changed to by mouth. Patient seen related O2 supplement due to exertional hypoxemia. O2 supplements were provided for home use. Patient was discharged with recommendation to continue and complete antibiotic course. 2. Chronic conditions: DM, HTN, COPD, Diabetic neuropathy, chronic bilateral lower extremity edema, history of LLL nodule (1.6cm) He continued home medication as well as Accu-Cheks and insulin. We also instructed patient to follow for pulmonary nodule with CAT scans. Patient was discharged with instructions below. Problem List: 1. Pneumonia Pain Ratin Pain Location: None Pain Goal: Pain 4 or less Pain Plan: continue current plan Tomorrow's Labs & Rationales: None Marixa JUSTIN,Ki 06/08/17 1414: Attending MD Review Statement Attending Statement Attending MD Statement: examined this patient, discuss w/resident/PA/EXPERIMENTAL PSYCHOLOGIST, agreed w/resident/PA/EXPERIMENTAL PSYCHOLOGIST, reviewed EMR data (avail), discussed with nursing, discussed with case mgmt, amended to note Attending Assessment/Plan: Patient seen and examined. Resting comfortably and not in any acute distress. No issues overnight. No new complaints only. She reports feeling better. He is afebrile hemodynamically stable. He is maintaining saturation on room air at rest however with ambulation he does desaturate. She does have underlying history of COPD. CT scan to yesterday reviewed. Followed by the pulmonology service appreciated. He is medically stable to be discharged today and will complete a course of oral antibiotic therapy at home. He will be provided with home oxygen supplementation due to his hypoxia likely secondary to his underlying COPD. Patient will follow-up with the pulmonology service as an outpatient. rest however with ambulation he does desaturate. She does have underlying history of COPD. CT scan to yesterday reviewed. Followed by the pulmonology service appreciated. He is medically stable to be discharged today and will complete a course of oral antibiotic therapy at home. He will be provided with home oxygen supplementation due to his hypoxia likely secondary to his underlying COPD. Patient will follow-up with the pulmonology service as an outpatient.
[2017-06-08 08:51] VITALS: BP 126/74
[2017-06-08] MEDS ORDERED: PROAIR HFA8.5 GM INH (11:07)
[2017-06-08] MEDS ORDERED: SPIRIVA18 MCG INH (11:07)
--- NOTE | 2017-06-08 13:49 | PN- Pulmonary ---
Subjective HPI/Critical Care Issues: Patient seen and examined this morning. With ambulation he saturating 84% and qualifies for oxygen. Objective Current Medications: Current Medications Sig/Mirna Start time Last Medication Dose Route Stop Time Status Admin Acetaminophen 650 MG .STK-MED ONE 06/07 1525 DC PO 06/07 1526 Acetaminophen 650 MG Q6P PRN 06/06 2200 AC 06/07 PO 1527 Acetaminophen 1,000 MG Q6P PRN 06/06 2200 AC IV Albuterol Sulfate 3 ML BID 06/07 2100 AC 06/08 INH 1013 Albuterol Sulfate 3 ML BID 06/07 2100 DC INH Amlodipine Besylate 10 MG DAILY 06/07 0900 AC 06/08 PO 0851 Aspirin Buffered 81 MG DAILY 06/07 0900 AC 06/08 PO 0850 Enoxaparin Sodium 40 MG DAILY 06/07 0900 AC 06/08 SC 0852 Ezetimibe 10 MG DAILY 06/07 0900 AC 06/08 PO 0852 Gabapentin 300 MG TID 06/07 0900 AC 06/08 PO 0850 Insulin Aspart 0 AT BEDTIME 06/07 2100 AC SC Insulin Aspart 0 TIDAC 06/07 0800 AC 06/07 SC 1724 Insulin Detemir 20 UNITS BID 06/06 2230 AC 06/08 SC 0854 Ipratropium [place] 2.5 ML BID 06/07 2100 AC 06/08 INH 1012 Losartan Potassium 100 MG DAILY 06/07 0900 AC 06/08 PO 0851 Moxifloxacin HCl 400 MG 1700 06/08 1700 AC PO Moxifloxacin HCl 400 MG Q24H 06/07 2200 DC 06/07 N/A 1 UNIT IV 205 Oxycodone/ 2 TAB Q6P PRN 06/06 2200 AC Acetaminophen PO Patient Medication 1 ED ONE ONE 06/07 1545 DC 06/07 Teaching ED 06/07 1546 1724 Sodium Chloride 1,000 ML .Q10H 06/06 2145 DC 06/07 IV 2054 Vital Signs & I&O Last 24 Hrs of Vitals and I&O: Vital Signs Date Time Temp Pulse Resp B/P B/P Pulse O2 O2 Flow FiO2 Mean Ox Delivery Rate 06/08 1013 93 Room Air 06/08 0851 80 126/74 06/08 0851 80 126/74 06/08 0800 Room Air 06/08 0643 98.6 86 22 126/74 93 Room Air 06/08 0600 98.6 86 20 126/74 06/08 0400 99.5 92 20 132/72 06/08 0200 99.5 92 20 138/72 06/08 0000 Room Air 06/07 2303 99.5 92 20 138/72 90 Room Air 06/07 1815 91 Room Air 06/07 1600 Room Air Intake & Output 06/08 1600 06/08 0800 06/08 0000 Intake Total 1300 1700 Output Total Balance 1300 1700 Intake, IV 800 800 Intake, Oral 500 900 Exam Other Physical Findings: gen awake and alert head/neck - room air cvs s1, s2 lungs bilateral rhonchi abd soft, bs+ ext without edema Results Last 24 Hrs of Lab Results: Laboratory Tests 06/08/17611: CBC w Diff NO MAN DIFF REQ, RBC 4.45 L, MCV 83.8, MCH 28.0, MCHC 33.5, RDW 15.0 H, MPV 9.9, Gran % 73.4, Lymphocytes % 11.0 L, Monocytes % 15.2 H, Eosinophils % 0.1, Basophils % 0.3, Absolute Granulocytes 6.5, Absolute Lymphocytes 1.0 L, Absolute Monocytes 1.4 H, Absolute Eosinophils 0, Absolute Basophils 0 Impression/Plan Impression/Plan Impression/Plan: Impression 66 year old man * Community acquired pneumonia possibly atypical * Recent wood sawing/chopping - could have an interstitial process of saw dust inhalation * significant DECREASE in LLL nodule to 1.1cm from 1.6cm and 1cm RML likely scarring Plan -currently on Avelox -instructed to always wear protective masks and safety goggles when exposed to saw dust and environmental exposures -[address] chest -trc/nebs DVT prophylaxis at all times
--- NOTE | 2017-06-08 14:40 | Discharge Summary ---
Hospital Course Allergies: Coded Allergies: Penicillins (Severe, HIVES 09/15/16) latex (PEELS SKIN OFF PER PT 04/20/17) Discharge Instructions Medications at Discharge Discharge Medications: Continue taking these medications: Insulin Glargine,Hum.rec.anlog (Lantus Solostar) 100 UNIT/ML (3 ML) INSULN.PEN 40 Unit Inject into fatty tissue Every night Qty = 15 Comments: NOT GIVEN IN HOSPITAL Dulaglutide (Trulicity) (Unknown Strength) PEN.INJCTR Unknown Dose Inject into fatty tissue EVERY SUNDAY Qty = 2 Comments: NOT GIVEN IN HOSPITAL Empagliflozin (Jardiance) 10 MG TABLET 1 Tablet ORAL DAILY Qty = 30 Comments: NOT GIVEN IN HOSPITAL Celecoxib (Celecoxib) 200 MG CAPSULE 2 Capsule ORAL Every Morning Qty = 60 Comments: NOT GIVEN IN HOSPITAL Furosemide (Furosemide) 20 MG TABLET 1 Tablet ORAL DAILY Qty = 30 Comments: NOT GIVEN IN HOSPITAL Gabapentin (Gabapentin) 300 MG CAPSULE 1 Capsule ORAL THREE TIMES DAILY Qty = 90 Comments: Last Taken: 06/08/17 Time: 8:50 AM Metformin HCl (Metformin HCl) 1,000 MG TABLET 1 Tablet ORAL TWICE DAILY Qty = 180 Comments: NOT GIVEN IN HOSPITAL Losartan/Hydrochlorothiazide (Losartan-Hctz 100-12.5 MG Tab) 100 MG-12.5 MG TABLET 1 Tablet ORAL DAILY Qty = 90 Comments: Last Taken: 06/08/17 Time: 8:51 AM Aspirin (Ecotrin*) 81 MG TABLET.DR 1 Tablet ORAL DAILY Comments: Last Taken:06/08/17 Time: 8:50 AM Amlodipine Besylate (Amlodipine Besylate) 10 MG TABLET 1 Tablet ORAL DAILY Qty = 30 Comments: Last Taken: 06/08/17 Time: 8:51 AM Ezetimibe (Zetia) 10 MG TABLET 1 Tablet ORAL DAILY Qty = 30 Comments: Last Taken:06/08/17 Time: 8:52 Ketoconazole (Nizoral) 2 % SHAMPOO 1 Application On the skin ONCE A WEEK Qty = 120 Comments: NOT GIVEN IN HOSPITAL Ketoconazole (Ketoconazole) 2 % CREAM..G. 1 Application On the skin as needed for SKIN Qty = 60 Instructions: apply to affected area(s) Comments: NOT GIVEN IN HOSPITAL Hydrocortisone (Hydrocortisone) 2.5 % CREAM..G. 1 Application On the skin as needed for SKIN - NOSE Qty = 2835 Instructions: apply to affected area(s) Comments: NOT GIVEN IN HOSPITAL Pyridoxine HCl (Vitamin B-6) 50 MG TABLET 1 Tablet ORAL DAILY Comments: NOT GIVEN IN HOSPITAL Cyanocobalamin (Vitamin B-12) (Vitamin B-12) 500 MCG TABLET 1 Tablet ORAL DAILY Comments: NOT GIVEN IN HOSPITAL [place]-3S/Dha/Epa/Fish Oil (Fish Oil 1,000 MG Softgel) 300 MG (250 MG-50 MG)-1, 000 MG CAPSULE 1 SGL ORAL TWICE DAILY Comments: NOT GIVEN AT HOSPITAL Albuterol Sulfate (Proair Hfa) 90 MCG HFA.AER.AD 2 Puff Inhale through mouth EVERY 4-6 HOURS NEEDED as needed for lung health Qty = 90 Comments: Last Taken: 06/08/17 Time: 10:13 AM Tiotropium [place] (Spiriva) 18 MCG CAP.W.DEV 1 Capsule Inhale through mouth DAILY Qty = 30 Instructions: NOT GIVEN AT HOSPITAL Start taking the following new medications: Moxifloxacin HCl (Avelox) 400 MG TABLET 1 Tablet ORAL DAILY Qty = 5 No Refills Comments: NOT GIVEN IN HOSPITAL
== END 2017-06-08 14:00 | DRG 194 ==
LOC: ERH 18:17 → 2NA 19:23 → ERHI 19:23 → ENRESERV 21:55 → ENTRNSPT 22:37 → EDTRNSPTSTS 22:41 → EDTRNSPT 22:41 → 2NA 22:52 → CMPTRNSPT 22:54 → 2NA 22:56 → ENPENDDIS 06-08 12:58 → ENTRNSPT 06-08 13:15 → EDTRNSPTSTS 06-08 13:51 → EDTRNSPT 06-08 13:51 → 2NA 06-08 14:00 → CMPTRNSPT 06-08 14:09
PROVIDERS: Physician Assistant; Radiology Vascular & Interventional Radiology; Student in an Organized Health Care Education/Training Program
DX: J18.9 Pneumonia, unspecified organism (principal); J44.0 Chronic obstructive pulmonary disease with (acute) lower respiratory infection; E11.40 Type 2 diabetes mellitus with diabetic neuropathy, unspecified; R09.02 Hypoxemia; E78.00 Pure hypercholesterolemia, unspecified; R00.0 Tachycardia, unspecified; Z96.642 Presence of left artificial hip joint; R91.8 Other nonspecific abnormal finding of lung field; Z79.4 Long term (current) use of insulin; I10 Essential (primary) hypertension; E78.5 Hyperlipidemia, unspecified; K21.9 Gastro-esophageal reflux disease without esophagitis; Z87.891 Personal history of nicotine dependence; Z91.040 Latex allergy status; Z88.0 Allergy status to penicillin; Z85.820 Personal history of malignant melanoma of skin
CPT/HCPCS: 2NASP; 36415; 36592; 71046; 80307; 81001; 82436; 87040; 87449; 87450; 87804; 87804-59; 93005; 93010; 96374; 96375; G0480; J0131; J0456; J0696; J1650; J2280; J3490; J7040